=== PATIENT | male | born 1945 | race Caucasian/White ===

== ENCOUNTER 2020-01-05 15:38 | Emergency (ER) | payer MEDICARE, OTHER ==
[~2020-01-05] VITALS: Ht 177.8 cm; Wt 86.0 kg
[~2020-01-05 15:38] MED LIST: ALPR0.5T PO; AMLO5TAB4 PO; DIPH1TAB PO; ESOM40CA PO; FENO145T3 PO; FERR325T14 PO; GLYB2.5T2 PO; IBUP800T19 PO; LOSA100T14 PO; MAG DELAY64 MG PO; MELA3TAB4 PO; METF10007 PO; ONDA8TAB9 PO; POTA10CA PO; PROC10TA57 PO; ZOLP5TAB PO
--- NOTE | 2020-01-05 16:06 | PHYS DOC ---
Past History Past Medical History: Cancer, Diabetes Additional Past Medical Histor: Multiple myeloma, bone marrow transplant Past Surgical History: No Surgical History Alcohol Use: None General Adult EDM: Chief Complaint: OTHER COMPLAINTS HPI: HPI: Patient is a 74-year-old male who presents to the emergency department for evaluation. He states that he apparently had a syncopal episode last night, where he passed out on the floor of his bedroom. He does not remember this, but he awakened to EMS in the room to check him out. He did not go to the hospital, and has felt fine since that time. His called his primary care doctor who referred him to the emergency department. The patient is currently asympt omatic. He denies any headache, chest pain, shortness of breath, abdominal pain, recent black or bloody stools, current dizziness or lightheadedness. He has not had any numbness or weakness. He states that he does sometimes feel dizzy after sitting for long period of time and standing up, but this has been a longstanding issue and is not new. There are no alleviating or exacerbating factors to his condition. Review of Systems: Review of Systems: Constitutional: Denies fever or chills Eyes: Denies change in visual acuity HENT: Denies nasal congestion or sore throat Respiratory: Denies cough or shortness of breath Cardiovascular: Denies chest pain or edema GI: Denies abdominal pain, nausea, vomiting, bloody stools or diarrhea : Denies dysuria Musculoskeletal: Denies back pain or joint pain Integument: Denies rash Neurologic: Denies headache, focal weakness or sensory changes Endocrine: Denies polyuria or polydipsia Lymphatic: Denies swollen glands Psychiatric: Denies depression or anxiety Heart Score: Risk Factors: Risk Factors: DM, Current or recent (<one month) smoker, HTN, HLP, family history of CAD, obesity. Risk Scores: Score 0 - 3: 2.5% MACE over next 6 weeks - Discharge Home Score 4 - 6: 20.3% MACE over next 6 weeks - Admit for Clinical Observation Score 7 - 10: 72.7% MACE over next 6 weeks - Early Invasive Strategies Allergies: Allergies: Allergies Coded Allergies Type Severity Reaction Last Updated Verified No Known Drug Allergies 06/12/16 No Physical Exam: PE: PHYSICAL EXAM: CONSTITUTIONAL: Well developed, well nourished HEAD: normocephalic, atraumatic EENT: PERRL, EOMI. Conjunctivae normal color, sclerae non-icteric; moist mucous membranes. NECK: Supple, non-tender; no meningismus. LUNGS: Lungs CTA, breathing even and unlabored. Normal air movement. HEART: Regular rate and rhythm, no murmur CHEST: No deformity; non-tender ABDOMEN: The abdomen is soft, and non-tender, no masses or bruits. EXTREM: Normal ROM; no deformity, no calf tenderness. Normal pulses palpable in all extremities. There is no pedal edema. SKIN: No rash; no diaphoresis NEURO: Alert; normal speech and cognition; CN's grossly intact; strength grossly intact without focal deficit. BACK: No CVA TTP. Current Patient Data: Labs: Laboratory Tests Test 01/05/20 16:27 01/05/20 16:28 01/05/20 16:56 White Blood Count 4.7 x10^3/uL Red Blood Count 3.05 x10^6/uL Hemoglobin 10.0 g/dL Hematocrit 28.5 % Mean Corpuscular Volume 94 fL Mean Corpuscular Hemoglobin 33 pg Mean Corpuscular Hemoglobin Concent 35 g/dL Red Cell Distribution Width 15.4 % Platelet Count 268 x10^3/uL Neutrophils (%) (Auto) 73 % Lymphocytes (%) (Auto) 23 % Monocytes (%) (Auto) 4 % Eosinophils (%) (Auto) 0 % Basophils (%) (Auto) 0 % Neutrophils # (Auto) 3.4 x10^3uL Lymphocytes # (Auto) 1.1 x10^3/uL Monocytes # (Auto) 0.2 x10^3/uL Eosinophils # (Auto) 0.0 x10^3/uL Basophils # (Auto) 0.0 x10^3/uL Sodium Level 128 mmol/L Potassium Level 3.9 mmol/L Chloride Level 94 mmol/L Carbon Dioxide Level 24 mmol/L Anion Gap 10 Blood Urea Nitrogen 20 mg/dL Creatinine 1.5 mg/dL Estimated GFR (Cockcroft-Gault) 45.9 BUN/Creatinine Ratio 13 Glucose Level 141 mg/dL Calcium Level 8.4 mg/dL Total Bilirubin 0.3 mg/dL Aspartate Amino Transf (AST/SGOT) 23 U/L Alanine Aminotransferase (ALT/SGPT) 21 U/L Alkaline Phosphatase 67 U/L Troponin I Quantitative < 0.017 ng/mL Total Protein 6.0 g/dL Albumin 3.1 g/dL Albumin/Globulin Ratio 1.1 Urine Collection Type Unknown Urine Color Yellow Urine Clarity Clear Urine pH 6.0 Urine Specific Ary >=1.030 Urine Protein 100 mg/dl Urine Glucose (UA) Neg mg/dL Urine Ketones (Stick) Trace mg/dL Urine Blood Trace Urine Nitrite Neg Urine Bilirubin Neg Urine Urobilinogen Dipstick 0.2 mg/dL Urine Leukocyte Esterase Neg Urine RBC 1-2 /HPF Urine WBC 1-4 /HPF Urine Squamous Epithelial Cells Occ /LPF Urine Bacteria 0 /HPF Urine Mucus Mod /LPF Stool Occult Blood Negative Current Medications Medications (Trade) Dose Ordered Sig/Tena Route PRN Reason Start Time Stop Time Status Last Admin Dose Admin Sodium Chloride 500 ml @ 0 mls/hr 1X ONCE IV 01/05/20 17:15 01/05/20 17:32 DC 01/05/20 17:10 Vital Signs: Vital Signs Date Time Temp Pulse Resp B/P (MAP) Pulse Ox O2 Delivery O2 Flow Rate FiO2 01/05/20 15:49 98.1 90 16 127/65 (85) 95 Room Air EKG: EKG: Normal sinus rhythm at a rate of 91 bpm, left axis deviation, normal intervals, nonspecific ST/T changes. [] Radiology/Procedures: Radiology/Procedures: PROCEDURE: CT HEAD WO CONTRAST CT brain without contrast. HISTORY: Syncope CT scan of the brain was done without contrast. Sinuses are clear. A skull fracture is not identified. There is no mass or shift of the midline. There is no intracranial hemorrhage or subdural hematoma. Ventricles are normal in size. An acute CVA is not identified. There is mild decreased density in the periventricular white matter most likely chronic microvascular changes.. IMPRESSION: 1. No intracranial hemorrhage or acute finding noted. [] PROCEDURE: CHEST AP ONLY AP chest. HISTORY: Syncope AP view was taken of the chest. There is a right Port-A-Cath extending to the superior vena cava. Heart is normal in size. There is are mild hazy infiltrates along the left heart border. There is slight blunting of the right costophrenic angle. A small right effusion is possible. There are no confluent infiltrates in the right chest. IMPRESSION: 1. Possible small right pleural effusion. 2. Mild left lung infiltrates. Course & Med Decision Making: Course & Med Decision Making Pertinent Labs and Imaging studies reviewed. (See chart for details) [] 6:10 PM: The patient's condition remains stable at this time. He remains asymptomatic. He still reports chronic low hemoglobin, chronic low sodium. His kidney function is not significantly different than his prior values from several years ago. I discussed test results in detail, the need for close PCP follow-up and return precautions. He does not want to be admitted to the hospital at this time. Yazmin Disclaimer: Yazmin Disclaimer: This electronic medical record was generated, in whole or in part, using a voice recognition dictation system. Departure Departure: Impression: Primary Impression: Syncope Disposition: 01 HOME/RESIDENCE PRIOR TO ADM Condition: STABLE Referrals: LORENZA ARMIJO MD (PCP) Patient Instructions: Hyponatremia, Syncope Justification of Admission: Justification of Admission: Justification of Admission Dx: N/A JAYNE TRIPATHI MD Jan 05, 2020 16:06
--- NOTE | 2020-01-05 16:28 | RAD ---
CT brain without contrast. HISTORY: Syncope CT scan of the brain was done without contrast. Sinuses are clear. A skull fracture is not identified. There is no mass or shift of the midline. There is no intracranial hemorrhage or subdural hematoma. Ventricles are normal in size. An acute CVA is not identified. There is mild decreased density in the periventricular white matter most likely chronic microvascular changes.. IMPRESSION: 1. No intracranial hemorrhage or acute finding noted. PQRS Compliance Statement: One or more of the following individualized dose reduction techniques were utilized for this examination: 1. Automated exposure control 2. Adjustment of the mA and/or kV according to patient size 3. Use of iterative reconstruction technique Electronically signed by: Gigi Stokes MD (01/05/2020 4:25 PM) [facility]
--- NOTE | 2020-01-05 16:32 | RAD ---
AP chest. HISTORY: Syncope AP view was taken of the chest. There is a right Port-A-Cath extending to the superior vena cava. Heart is normal in size. There is are mild hazy infiltrates along the left heart border. There is slight blunting of the right costophrenic angle. A small right effusion is possible. There are no confluent infiltrates in the right chest. IMPRESSION: 1. Possible small right pleural effusion. 2. Mild left lung infiltrates. Electronically signed by: Gigi Stokes MD (01/05/2020 4:29 PM) [facility]
[2020-01-05 16:44] LABS: BASO % 0 % (0-3); EOS % 0 % (0-3); HEMATOCRIT 28.5 % (39.0-53.0); LYMPH # 1.1 x10^3/uL (1.0-4.8); LYMPH % 23 % (24-48); MEAN CORPUSCULAR HEMOGLOBIN 33 pg (25-35); MEAN CORPUSCULAR HGB CONC 35 g/dL (31-37); MEAN CORPUSCULAR VOLUME 94 fL (79-100); MONO # 0.2 x10^3/uL (0.0-1.1); MONO % 4 % (0-9); NEUT # 3.4 x10^3uL (1.8-7.7); NEUT % 73 % (31-73); PLATELET COUNT 268 x10^3/uL (140-400); RED BLOOD COUNT 3.05 x10^6/uL (4.30-5.70); RED CELL DISTRIBUTION WIDTH 15.4 % (11.5-14.5); WHITE BLOOD COUNT 4.7 x10^3/uL (4.0-11.0)
[2020-01-05 16:51] LABS: CALCIUM 8.4 mg/dL (8.5-10.1); CREATININE 1.5 mg/dL (0.7-1.3); GFR 45.9; POTASSIUM 3.9 mmol/L (3.5-5.1)
[2020-01-05 16:57] LABS: ALBUMIN 3.1 g/dL (3.4-5.0); ALBUMIN/GLOBULIN RATIO 1.1 (1.0-1.7); TOTAL BILIRUBIN 0.3 mg/dL (0.2-1.0)
[2020-01-05] MEDS ORDERED: IV NORMAL SALINE 500ML 500 ML IV ONE (17:15)
--- NOTE | 2020-01-05 17:32 | EKG ---
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
[2020-01-05 17:38] LABS: BACTERIA,URINE 0 /HPF (0-FEW); BILIRUBIN,URINE NEG (NEG); CLARITY,URINE CLEAR; COLOR,URINE YELLOW; GLUCOSE,URINE NEG (NEG); NITRITE,URINE NEG (NEG); SQUAMOUS EPITHELIAL CELL,UR OCC /LPF; UROBILINOGEN,URINE 0.2 mg/dL (0.2 mg/dL)
[2020-01-05 17:47] LABS: FECAL OB PT NEGATIVE (NEG)
[2020-01-05 18:18] VITALS: BP 110/56
== END 2020-01-05 18:18 | disposition home or self-care (01) ==
LOC: ER 15:38
DX: R55 Syncope and collapse (principal); E11.9 Type 2 diabetes mellitus without complications; Z85.79 Personal history of other malignant neoplasms of lymphoid, hematopoietic and related tissues
CPT/HCPCS: 36415; 70450; 71045; 80053; 81001; 82274; 84484; 85025; 93005; 96360; 96361; 99285; J7040

== ENCOUNTER 2020-01-07 17:50 | Inpatient (IN) | payer MEDICARE, OTHER ==
[~2020-01-07] VITALS: Ht 177.8 cm; Wt 80.2 kg
[2020-01-07 19:00] VITALS: BP 133/67
--- NOTE | 2020-01-07 19:23 | NUR ---
NSG NOTE; ADMISSION DIRECT ADMIT TO ROOM 125 AT 1755 VIA W/C ACCOMP BY WHO WAITED IN THE LOBBY PT HAD SYNCOPE EPISODE 01/04/20 AT HOME AND C/O LETHARGY, CONFUSION, LOW GRADE FEVERS, WEAKNESS AND PROD COUGH SINCE THEN. ED VISIT 01/06/20 SHOWED INFILTRATES BUT PT REFUSED ADMIT. WENT TO DR ARMIJO'S OFFICE TODAY AND AGREED TO BE ADMITTED
[2020-01-07 19:44] LABS: BASO % 0 % (0-3); EOS % 0 % (0-3); HEMOGLOBIN 9.8 g/dL (13.0-17.5); LYMPH # 0.6 x10^3/uL (1.0-4.8); LYMPH % 18 % (24-48); MEAN CORPUSCULAR HEMOGLOBIN 33 pg (25-35); MEAN CORPUSCULAR HGB CONC 35 g/dL (31-37); MEAN CORPUSCULAR VOLUME 93 fL (79-100); MONO # 0.2 x10^3/uL (0.0-1.1); MONO % 6 % (0-9); NEUT # 2.5 x10^3uL (1.8-7.7); NEUT % 76 % (31-73); PLATELET COUNT 302 x10^3/uL (140-400); RED BLOOD COUNT 3.02 x10^6/uL (4.30-5.70); RED CELL DISTRIBUTION WIDTH 15.2 % (11.5-14.5); WHITE BLOOD COUNT 3.3 x10^3/uL (4.0-11.0)
[2020-01-07] MEDS ORDERED: ZOLPIDEM 5 MG TABLET. PO PRN (19:45)
[2020-01-07 19:52] LABS: ALBUMIN 2.8 g/dL (3.4-5.0); ALBUMIN/GLOBULIN RATIO 0.7 (1.0-1.7); CALCIUM 8.1 mg/dL (8.5-10.1); CREATININE 1.5 mg/dL (0.7-1.3); GFR 45.9; POTASSIUM 3.7 mmol/L (3.5-5.1); TOTAL BILIRUBIN 0.3 mg/dL (0.2-1.0); TOTAL PROTEIN 6.8 g/dL (6.4-8.2)
[2020-01-07] MEDS ORDERED: PROCHLORPERAZINE 5 MG TABLET. PO PRN (20:15)
[2020-01-07] MEDS: ALPRAZolam 0.5 MG TABLET PO PRN (21:37)
--- NOTE | 2020-01-07 21:42 | RAD ---
CT CHEST WO CONTRAST Indication: Pneumonia, shortness of air, weakness, cough Technique: Noncontrast CT imaging was performed of the chest, multiplanar reconstruction images submitted. One or more of the following individualized dose reduction techniques were utilized for this examination: 1. Automated exposure control 2. Adjustment of the mA and/or kV according to patient size 3. Use of iterative reconstruction technique. Comparison: None Findings: There is broad area of prominent groundglass density of the left lower and left upper lobes, smaller areas on the right. Involvement is more peripheral of the right upper lobe and right lower lobe. There is no pleural or pericardial fluid or pneumothorax. There is severe coronary calcification. There is right internal jugular port catheter. There are some lytic foci of the sternum, largest on the right about 2.7 cm transverse. There are multiple scattered lytic foci of the spine, most notable of T9 at which there is degree of pathologic compression deformity. There is also fairly large focus of C7. There is mild distention of the distal esophagus. No significantly enlarged nodes are identified of the chest. There is a 2.4 cm cyst of the right kidney. There is a left adrenal nodule about 2.9 cm. IMPRESSION: 1. There are multiple osseous lytic foci, evidence of multiple myeloma or metastatic disease. There is pathologic compression deformity of T9. 2. There are broad areas of glass density bilaterally, left greater than right. Findings are nonspecific, could be due to edema although can be seen with atypical viral infectious etiologies (including COVID). 3. There is coronary calcification. 4. There is left adrenal nodule. Critical results were discussed with patient's nurse Argenis at 01/07/2020 9:34 PM. Electronically signed by: Sonny Wan MD (01/07/2020 9:40 PM) [facility]
[2020-01-07] MEDS: AZITHROMYCIN 500 MG in IV NORMAL SALINE 250ML 250 ML IV SCH (22:23)
[2020-01-07] MEDS: CALCIUM CARBONATE 500 MG TAB.CHEW PO PRN (23:29)
[2020-01-07 23:48] VITALS: BP 139/80
[2020-01-08 06:58] VITALS: BP 121/66
[2020-01-08 07:23] LABS: BASO % 0 % (0-3); EOS % 0 % (0-3); HEMATOCRIT 27.7 % (39.0-53.0); HEMOGLOBIN 9.8 g/dL (13.0-17.5); LYMPH # 0.8 x10^3/uL (1.0-4.8); LYMPH % 31 % (24-48); MEAN CORPUSCULAR HEMOGLOBIN 32 pg (25-35); MEAN CORPUSCULAR HGB CONC 35 g/dL (31-37); MEAN CORPUSCULAR VOLUME 92 fL (79-100); MONO # 0.2 x10^3/uL (0.0-1.1); MONO % 6 % (0-9); NEUT # 1.7 x10^3uL (1.8-7.7); NEUT % 63 % (31-73); PLATELET COUNT 308 x10^3/uL (140-400); RED BLOOD COUNT 3.03 x10^6/uL (4.30-5.70); RED CELL DISTRIBUTION WIDTH 15.1 % (11.5-14.5); WHITE BLOOD COUNT 2.7 x10^3/uL (4.0-11.0)
[2020-01-08 07:33] LABS: CALCIUM 8.1 mg/dL (8.5-10.1); CREATININE 1.2 mg/dL (0.7-1.3); GFR 59.3; POTASSIUM 3.5 mmol/L (3.5-5.1)
[2020-01-08] MEDS: PANTOPRAZOLE 40 MG TABLET. PO SCH (07:52)
[2020-01-08] MEDS: metFORMIN 500 MG TABLET PO SCH ×2 (07:52→16:50)
[2020-01-08] MEDS: ALPRAZolam 0.5 MG TABLET PO PRN ×2 (07:52→16:51)
[2020-01-08] MEDS: FERROUS SULFATE 325 MG TABLET. PO SCH (07:52)
[2020-01-08] MEDS: FENOFIBRATE NANOCRYSTALLIZED 145 MG TABLET PO SCH (07:53)
[2020-01-08] MEDS: POTASSIUM CHLORIDE 10 MEQ TABLET.ER. PO SCH (07:53)
[2020-01-08] MEDS: glyBURIDE 1.25 MG TABLET PO SCH (07:55)
[2020-01-08] MEDS: LACTOBACILLUS RHAMNOSUS GG 1 CAPSULE. PO SCH ×2 (09:00→20:42)
[2020-01-08] MEDS ORDERED: LOSARTAN 50 MG TABLET. PO SCH (09:00)
[2020-01-08] MEDS ORDERED: amLODIPine BESYLATE 5 MG TABLET PO SCH (09:00)
[2020-01-08] MEDS ORDERED: MAGNESIUM CHLORIDE ER 64 MG TABLET.ER PO SCH (09:00)
[2020-01-08] MEDS ORDERED: FUROSEMIDE 20 MG/2 ML VIAL IVP ONE (10:15)
[2020-01-08] MEDS ORDERED: ONDANSETRON PF 4 MG/2 ML VIAL. IVP PRN (10:15)
[2020-01-08] MEDS ORDERED: ONDANSETRON 4MG ODT 4TABLET STARTPACK. PO ONE (10:15)
--- NOTE | 2020-01-08 11:33 | NUR ---
Patient is Dishcarged home with self care. Patient is given all discharge instructions and followup. Patient takes all belongings with self at time of discharge.
[2020-01-08 11:52] VITALS: BP 133/65
[2020-01-08] MEDS ORDERED: MONT10TA80 PO (14:15)
[2020-01-08] MEDS ORDERED: OXYC5TAB88 PO (14:15)
[2020-01-08] MEDS ORDERED: ASPI325T8 PO (14:15)
[2020-01-08] MEDS ORDERED: TRAM50TA PO (14:15)
[2020-01-08] MEDS ORDERED: VITA80003 PO (14:15)
[2020-01-08 15:00] VITALS: BP 142/81
--- NOTE | 2020-01-08 18:01 | PN ---
DATE: SUBJECTIVE: A 74-year-old gentleman, history of multiple myeloma, came in, not feeling well, has been running low-grade temperature. His chest x-ray initially in the Emergency Room showed an infiltrative process, possible pneumonia, high risk, being immunocompromised from he receives immunotherapy for his multiple myeloma. His white count is slightly decreased at 2.7, neutropenic and no left shift was noted. The patient was somewhat anxious this morning and he was given some Ativan for that. OBJECTIVE: VITAL SIGNS: Blood pressure 130/60, pulse 86, afebrile, respiratory rate is noted 20 with oxygen at 2 liters at 96%. LUNGS: Otherwise, his lungs do show some crackles in the bases. CARDIOVASCULAR: Regular sinus rhythm. ABDOMEN: Soft, nontender, no masses noted. EXTREMITIES: With just trace edema noted. Pulses noted distally. NEUROLOGICAL: Alert and oriented, but somewhat anxious as indicated. The patient to me was alert and oriented. He answered questions appropriately and was able to discuss his overall situation that he was feeling somewhat anxious and just needed some rest. The patient obviously under a lot of stress with his multiple myeloma as well as his diabetes, not being well controlled. He is on a sliding scale for this as well. His sodium was also slightly low at 128, came up to 131. BUN and creatinine presently 23 and 1.2, was 25 and 1.5, blood sugar presently 225, calcium slightly low at 8.1, pseudohypocalcemia with an albumin of 2.8. The patient otherwise continued to be monitored carefully. CT scan of the chest was performed, showed multiple osseous lytic foci, evidence of multiple myeloma or metastatic disease, probably multiple myeloma and possible pathological compression deformity of T9, areas of glass density in the left greater than right could be due to edema. BNP was ordered and that is pending presently. Procalcitonin was less than 0.10. Albumin is noted 2.8. The patient will continue with present therapy, given dose of Lasix 20 mg IV one time to diurese and see if that will help him. COVID-19 test is pending. 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 In any case, the patient is in a COVID-19 room, all appropriate precautions there, given lorazepam for anxiety. Did discuss with his situation and the patient just wants to rest right now and await some of these other lab tests to be returned to the chart. LORENZA ARMIJO MD DR: CHANO/gricel JOB#: [id number] / [id number]
[2020-01-08 19:45] VITALS: BP 108/58
[2020-01-08] MEDS: CALCIUM CARBONATE 500 MG TAB.CHEW PO PRN (20:42)
[2020-01-08] MEDS: AZITHROMYCIN 500 MG in IV NORMAL SALINE 250ML 250 ML IV SCH (21:48)
--- NOTE | 2020-01-08 22:24 | NUR ---
Pt given Ativan and Ambien this evening with night meds. He expresses he struggles with anxiety and hopes to sleep well tonight. Pt shows increased confusion and repeatedly getting up to "organize this room." Able to redirect to bed, replaced CPAP mask and reposition for efficient infusion of antibiotics. Will continue to monitor.
[2020-01-08 23:16] VITALS: BP 153/71
[2020-01-09] MEDS: ALPRAZolam 0.5 MG TABLET PO PRN ×2 (00:39→09:30)
--- NOTE | 2020-01-09 02:40 | NUR ---
Pt continues to "try to get untangled." He pulled off his monitor and storage bin tender two more times. He has been found wandering around the room adjusting furniture and pulling the IV pole. His CPAP was found on the floor a few times; cleaned and reapplied. Twice the patient has been wandering down the isolation zapata to "stretch his legs." Pt is pleasantly confused and forgetful of necessary safety precautions. IV dressing remains intact but IV cannula removed. Pt recalls this nurse reminding him of his infusion being "almost done" as he explained that is why he pulled his IV out. Pt found gathering supplies outside of his room and placing them in the trash. Encouraged pt to remain in his room to avoid jose others' infectious diseases. Pt abruptly went to his room and shut the door on this nurse. Encouraged pt to get back into bed and applied nasal cannula on 2L since pt was not sleeping and was short of air. Pt requested a diet coke and remains in bed currently. Will continue to monitor.
--- NOTE | 2020-01-09 05:10 | NUR ---
Found pt leaning forward, resting his head in his hands against the wall by the door. Pt states he just feels uncomfortable and stiff from lying in bed. Pt requests oxycotin for pain but denies pain level when asked on a scale. Pt also requests chocolate milk, which we do not have but accepted chocolate ice cream. Encouraged pt to get into bed and replaced nasal cannula as pt is breathing heavy. Provided diet cola and ice cream. Will continue to monitor.
--- NOTE | 2020-01-09 05:17 | EKG ---
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
--- NOTE | 2020-01-09 06:35 | NUR ---
Attempted to start an IV and administer Ativan about 0517. No IV access was successful. Pt now asleep. Will try again later.
[2020-01-09] MEDS ORDERED: MONTELUKAST 10 MG TABLET. PO PRN (08:15)
[2020-01-09] MEDS ORDERED: NON FORMULARY ITEM (Vitamin A 8,000 UNIT) PO SCH (09:00)
[2020-01-09] MEDS: oxyCODONE IR 5 MG TABLET PO PRN (09:30)
[2020-01-09] MEDS: LACTOBACILLUS RHAMNOSUS GG 1 CAPSULE. PO SCH ×2 (09:30→20:31)
[2020-01-09] MEDS: FERROUS SULFATE 325 MG TABLET. PO SCH (09:30)
[2020-01-09] MEDS: POTASSIUM CHLORIDE 10 MEQ TABLET.ER. PO SCH (09:30)
[2020-01-09] MEDS: PANTOPRAZOLE 40 MG TABLET. PO SCH (09:30)
[2020-01-09] MEDS: metFORMIN 500 MG TABLET PO SCH ×2 (09:30→17:00)
[2020-01-09] MEDS: FENOFIBRATE NANOCRYSTALLIZED 145 MG TABLET PO SCH (09:30)
[2020-01-09] MEDS: ASPIRIN 325 MG TABLET PO SCH (09:30)
[2020-01-09] MEDS: glyBURIDE 1.25 MG TABLET PO SCH (09:32)
[2020-01-09 09:34] VITALS: BP 129/75
[2020-01-09 12:32] VITALS: BP 108/67
[2020-01-09] MEDS: FUROSEMIDE 40 MG/4 ML VIAL IVP SCH (13:25)
[2020-01-09 14:13] LABS: BASO % 0 % (0-3); EOS % 0 % (0-3); HEMATOCRIT 26.9 % (39.0-53.0); HEMOGLOBIN 9.6 g/dL (13.0-17.5); LYMPH # 0.7 x10^3/uL (1.0-4.8); LYMPH % 17 % (24-48); MEAN CORPUSCULAR HEMOGLOBIN 33 pg (25-35); MEAN CORPUSCULAR HGB CONC 36 g/dL (31-37); MEAN CORPUSCULAR VOLUME 93 fL (79-100); MONO # 0.1 x10^3/uL (0.0-1.1); MONO % 3 % (0-9); NEUT % 79 % (31-73); PLATELET COUNT 356 x10^3/uL (140-400); RED BLOOD COUNT 2.91 x10^6/uL (4.30-5.70); WHITE BLOOD COUNT 3.8 x10^3/uL (4.0-11.0)
[2020-01-09 14:22] LABS: ALBUMIN 2.7 g/dL (3.4-5.0); ALBUMIN/GLOBULIN RATIO 0.7 (1.0-1.7); CALCIUM 7.9 mg/dL (8.5-10.1); CREATININE 1.4 mg/dL (0.7-1.3); GFR 49.7; POTASSIUM 3.5 mmol/L (3.5-5.1); TOTAL BILIRUBIN 0.2 mg/dL (0.2-1.0); TOTAL PROTEIN 6.6 g/dL (6.4-8.2)
[2020-01-09 15:00] VITALS: BP 98/71
[2020-01-09 19:30] VITALS: BP 111/64
--- NOTE | 2020-01-09 19:59 | PN ---
DATE: SUBJECTIVE: A 74-year-old male in with multiple medical issues. He says he is feeling a little better, although the nurses note he does get sundowners at night. Blood sugars are still up. We will add Lantus along to his sliding scale. The patient otherwise is resting comfortably presently and was able to discuss things and asked some intelligent questions consistent. His oxygen saturation on 2 liters is 90%. OBJECTIVE: VITAL SIGNS: Blood pressure 130/70, respiratory rate 20, pulse 83 and afebrile. GENERAL: The patient is alert presently. LUNGS: Show some crackles in the bases. We will go ahead and give him some IV Lasix and continue to monitor him accordingly on that. CARDIOVASCULAR: Regular sinus rhythm. ABDOMEN: Soft. EXTREMITIES: Without clubbing, cyanosis, nor edema. LABORATORY TEST: BNP was slightly elevated at 264. Iron levels low at 24. IMPRESSION AND PLAN: Multiple myeloma, pulmonary congestion, immunosuppression, COVID-19 report still pending, hyponatremia, osteolytic lesions of the bone, chronic kidney disease, type 2 diabetes, anemia secondary to iron deficiency and multiple myeloma, neutropenia. The patient still under precautions with his immunosuppression until we get back the COVID-19 test. LORENZA ARMIJO MD DR: CHANO/gricel JOB#: [id number] / [id number]
[2020-01-09] MEDS: MELATONIN 3 MG TABLET PO SCH (20:32)
[2020-01-09] MEDS ORDERED: INSULIN GLARGINE SYRINGE. SQ SCH (21:00)
[2020-01-09] MEDS: AZITHROMYCIN 500 MG in IV NORMAL SALINE 250ML 250 ML IV SCH (21:29)
[2020-01-09 22:53] VITALS: BP 93/47
[2020-01-10 06:37] VITALS: BP 113/64
[2020-01-10 06:38] LABS: BASO % 0 % (0-3); EOS % 0 % (0-3); HEMATOCRIT 26.4 % (39.0-53.0); HEMOGLOBIN 9.3 g/dL (13.0-17.5); LYMPH # 0.7 x10^3/uL (1.0-4.8); LYMPH % 14 % (24-48); MEAN CORPUSCULAR HEMOGLOBIN 32 pg (25-35); MEAN CORPUSCULAR HGB CONC 35 g/dL (31-37); MEAN CORPUSCULAR VOLUME 92 fL (79-100); MONO # 0.1 x10^3/uL (0.0-1.1); MONO % 2 % (0-9); NEUT % 83 % (31-73); PLATELET COUNT 375 x10^3/uL (140-400); RED BLOOD COUNT 2.87 x10^6/uL (4.30-5.70); RED CELL DISTRIBUTION WIDTH 14.9 % (11.5-14.5); WHITE BLOOD COUNT 4.8 x10^3/uL (4.0-11.0)
[2020-01-10] MEDS: traMADol 50 MG TABLET PO PRN (06:42)
[2020-01-10 06:51] LABS: CALCIUM 7.7 mg/dL (8.5-10.1); CREATININE 1.3 mg/dL (0.7-1.3); GFR 54.1; POTASSIUM 3.1 mmol/L (3.5-5.1)
[2020-01-10] MEDS: ALPRAZolam 0.5 MG TABLET PO PRN (08:29)
[2020-01-10] MEDS: metFORMIN 500 MG TABLET PO SCH ×3 (08:29→17:18)
[2020-01-10] MEDS: LACTOBACILLUS RHAMNOSUS GG 1 CAPSULE. PO SCH ×2 (08:30→20:42)
[2020-01-10] MEDS: FENOFIBRATE NANOCRYSTALLIZED 145 MG TABLET PO SCH (08:30)
[2020-01-10] MEDS: ASPIRIN 325 MG TABLET PO SCH (08:30)
[2020-01-10] MEDS: PANTOPRAZOLE 40 MG TABLET. PO SCH (08:30)
[2020-01-10] MEDS: POTASSIUM CHLORIDE 10 MEQ TABLET.ER. PO SCH (08:30)
[2020-01-10] MEDS: FUROSEMIDE 40 MG/4 ML VIAL IVP SCH (08:32)
[2020-01-10] MEDS: FERROUS SULFATE 325 MG TABLET. PO SCH (08:33)
[2020-01-10 08:35] VITALS: BP 121/58
[2020-01-10] MEDS: glyBURIDE 1.25 MG TABLET PO SCH (08:52)
[2020-01-10] MEDS ORDERED: POTASSIUM CHLORIDE 20 MEQ TABLET.ER. PO ONE (08:55)
[2020-01-10] MEDS ORDERED: ELECTROLYTE (NON-ICU) PROTOCOL MC PRN (09:45)
--- NOTE | 2020-01-10 10:26 | NUR ---
IP: Patient is PUI for COVID-19, requires contact and airborne precautions.
[2020-01-10] MEDS: INSULIN GLARGINE SYRINGE. SQ SCH ×2 (11:52→20:41)
[2020-01-10 11:57] VITALS: BP 100/61
[2020-01-10 12:03] LABS: FECAL OB PT NEGATIVE (NEG)
[2020-01-10 15:16] VITALS: BP 123/60
[2020-01-10 19:30] VITALS: BP 112/47
[2020-01-10] MEDS: MELATONIN 3 MG TABLET PO SCH (20:42)
[2020-01-10] MEDS: AZITHROMYCIN 500 MG in IV NORMAL SALINE 250ML 250 ML IV SCH (21:00)
[2020-01-10 23:00] VITALS: BP 100/52
--- NOTE | 2020-01-11 03:40 | PN ---
DATE: 01/10/2020 SUBJECTIVE: The patient is resting comfortably. He has good diuresis with the Lasix, seems to be doing better. His white count is up to 4.8, hemoglobin 9.3 and hematocrit 26. The patient's chemistry shows sodium of 131, potassium 3.1. He is on electrolyte replacement. Blood sugars have come down nicely with the increase in the Lantus and we will continue to monitor his blood sugars, they are Hemoccult negative. COVID-19 is still pending. PHYSICAL EXAMINATION: VITAL SIGNS: Otherwise, blood pressure 120/60, respiratory rate 20, pulse 90, afebrile, 2 liters 95%. GENERAL: The patient is alert and oriented. LUNGS: Diminished, but much clear. No rhonchi noted in the bases. CARDIOVASCULAR: Regular sinus rhythm. EXTREMITIES: No clubbing, cyanosis, or edema. NEUROLOGIC: The patient at present anyway is alert and oriented. Speech is fluent, spontaneous, and appropriate. PLAN: The patient continues to be monitored carefully and will be monitored again in the morning for his electrolytes. LORENZA ARMIJO MD DR: CHANO/griecl JOB#: [id number] / [id number]
[2020-01-11] MEDS: INSULIN GLARGINE SYRINGE. SQ SCH ×3 (09:00→21:10)
[2020-01-11 09:07] VITALS: BP 101/50
[2020-01-11 09:28] LABS: CALCIUM 7.5 mg/dL (8.5-10.1); CREATININE 1.2 mg/dL (0.7-1.3); GFR 59.3; POTASSIUM 3.2 mmol/L (3.5-5.1)
[2020-01-11 09:29] LABS: BASO % 0 % (0-3); EOS % 0 % (0-3); HEMATOCRIT 26.7 % (39.0-53.0); HEMOGLOBIN 9.2 g/dL (13.0-17.5); LYMPH # 0.6 x10^3/uL (1.0-4.8); LYMPH % 13 % (24-48); MEAN CORPUSCULAR HEMOGLOBIN 32 pg (25-35); MEAN CORPUSCULAR HGB CONC 35 g/dL (31-37); MEAN CORPUSCULAR VOLUME 92 fL (79-100); MONO # 0.1 x10^3/uL (0.0-1.1); MONO % 2 % (0-9); NEUT # 3.9 x10^3uL (1.8-7.7); NEUT % 84 % (31-73); PLATELET COUNT 362 x10^3/uL (140-400); RED BLOOD COUNT 2.91 x10^6/uL (4.30-5.70); RED CELL DISTRIBUTION WIDTH 14.6 % (11.5-14.5); WHITE BLOOD COUNT 4.6 x10^3/uL (4.0-11.0)
[2020-01-11] MEDS: metFORMIN 500 MG TABLET PO SCH ×2 (09:29→17:34)
[2020-01-11] MEDS: LACTOBACILLUS RHAMNOSUS GG 1 CAPSULE. PO SCH ×2 (09:29→21:26)
[2020-01-11] MEDS: FERROUS SULFATE 325 MG TABLET. PO SCH (09:29)
[2020-01-11] MEDS: PANTOPRAZOLE 40 MG TABLET. PO SCH (09:29)
[2020-01-11] MEDS: FENOFIBRATE NANOCRYSTALLIZED 145 MG TABLET PO SCH (09:29)
[2020-01-11] MEDS: ALPRAZolam 0.5 MG TABLET PO PRN ×2 (09:30→18:13)
[2020-01-11] MEDS: glyBURIDE 1.25 MG TABLET PO SCH (09:30)
[2020-01-11] MEDS: ASPIRIN 325 MG TABLET PO SCH (09:30)
[2020-01-11] MEDS: POTASSIUM CHLORIDE 10 MEQ TABLET.ER. PO SCH (09:30)
[2020-01-11] MEDS: FUROSEMIDE 40 MG/4 ML VIAL IVP SCH (09:31)
[2020-01-11] MEDS ORDERED: ELECTROLYTE (NON-ICU) PROTOCOL MC PRN ×2 (09:45)
[2020-01-11] MEDS: ALBUTEROL SULFATE 8GM INHALER. INH SCH ×3 (09:55→21:00)
--- NOTE | 2020-01-11 11:46 | PN ---
DATE: SUBJECTIVE: A 74-year-old male with acute exacerbation of COPD as well as respiratory distress. The patient is feeling better. He does look better. He sounds better overall. The patient has diuresed nicely and his blood sugars seem to be under better control overall with the use of the Lantus. The patient's sodium has dropped down to 129, potassium 3.2. He is on electrolyte replacement, fluid restriction. Otherwise, he does not have any basic complaints except some soreness in his neck. OBJECTIVE: GENERAL: The patient otherwise is alert and oriented. Speech is fluent and spontaneous. He seems to be very appropriate emotionally. LUNGS: Clear. There is still little decreased breath sounds in the bases, but markedly improved from where he began. CARDIOVASCULAR: Regular sinus rhythm. EXTREMITIES: No clubbing, cyanosis, nor edema. LABORATORY DATA: From this morning shows sodium 129, potassium 3.2, BUN and creatinine 23 and 1.2, blood sugar 198. The patient continues to be monitored. We are still waiting for COVID-19 test to be returned and we will make further adjustment accordingly of course to that test. IMPRESSION: Multiple myeloma, pulmonary congestion, immunosuppression. COVID-19 report still pending. Hyponatremia. 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 We will continue mild diuresis and make further adjustment on his medications as new reports are brought in. LORENZA ARMIJO MD DR: CHANO/gricel JOB#: [id number] / [id number]
[2020-01-11 14:54] VITALS: BP 116/56
[2020-01-11] MEDS: BUDESONIDE 0.5 MG/2 ML NEBU NEB SCH ×2 (17:34→20:00)
[2020-01-11] MEDS: HYDROXYCHLOROQUINE 200 MG TABLET PO SCH (18:01)
[2020-01-11] MEDS: DEXAMETHASONE 0.5 MG TABLET PO SCH (18:02)
[2020-01-11] MEDS: traMADol 50 MG TABLET PO PRN (18:14)
[2020-01-11] MEDS ORDERED: ACETAMINOPHEN 325 MG TABLET PO PRN (19:45)
[2020-01-11 19:50] VITALS: BP 113/61
[2020-01-11] MEDS: MELATONIN 3 MG TABLET PO SCH (21:26)
[2020-01-11] MEDS: AZITHROMYCIN 500 MG in IV NORMAL SALINE 250ML 250 ML IV SCH (22:23)
[2020-01-11 22:57] VITALS: BP 96/54
[2020-01-12 06:17] LABS: CALCIUM 7.4 mg/dL (8.5-10.1); CREATININE 1.1 mg/dL (0.7-1.3); GFR 65.6; POTASSIUM 3.5 mmol/L (3.5-5.1)
[2020-01-12 06:30] VITALS: BP 94/58
[2020-01-12] MEDS: PANTOPRAZOLE 40 MG TABLET. PO SCH (07:30)
[2020-01-12] MEDS: BUDESONIDE 0.5 MG/2 ML NEBU NEB SCH ×2 (08:00→20:32)
[2020-01-12] MEDS: glyBURIDE 1.25 MG TABLET PO SCH (08:00)
[2020-01-12] MEDS: metFORMIN 500 MG TABLET PO SCH ×2 (08:00→18:05)
[2020-01-12] MEDS: ALBUTEROL SULFATE 8GM INHALER. INH SCH ×3 (08:39→20:28)
[2020-01-12] MEDS: FUROSEMIDE 40 MG/4 ML VIAL IVP SCH (08:39)
[2020-01-12] MEDS: LACTOBACILLUS RHAMNOSUS GG 1 CAPSULE. PO SCH ×2 (09:00→20:48)
[2020-01-12] MEDS: ASPIRIN 325 MG TABLET PO SCH (09:00)
[2020-01-12] MEDS: POTASSIUM CHLORIDE 10 MEQ TABLET.ER. PO SCH (09:00)
[2020-01-12] MEDS: FERROUS SULFATE 325 MG TABLET. PO SCH (09:00)
[2020-01-12] MEDS: HYDROXYCHLOROQUINE 200 MG TABLET PO SCH (09:00)
[2020-01-12] MEDS: FENOFIBRATE NANOCRYSTALLIZED 145 MG TABLET PO SCH (09:00)
[2020-01-12] MEDS: DEXAMETHASONE 0.5 MG TABLET PO SCH ×2 (09:00→20:48)
[2020-01-12] MEDS: INSULIN GLARGINE SYRINGE. SQ SCH ×2 (09:00→20:50)
[2020-01-12] MEDS: oxyCODONE IR 5 MG TABLET PO PRN (09:09)
[2020-01-12 12:38] VITALS: BP 93/70
--- NOTE | 2020-01-12 17:15 | EKG ---
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
[2020-01-12 17:32] VITALS: BP 94/56
--- NOTE | 2020-01-12 18:24 | PN ---
DATE: SUBJECTIVE: A 74-year-old male in with SARS COVID-19 pneumonia. The patient's repeat test last night demonstrated he still has the virus, so he is still infective. The patient, however, is doing much better clinically. He seems to be stronger in voice. OBJECTIVE: VITAL SIGNS: Blood pressure 94/50, respiratory rate 18, pulse 70, afebrile. LUNGS: Diminished, but basically clear. NEUROLOGIC: His speech is fluent, spontaneous, and appropriate. He continues to make good progress with his situation. We have started him on Plaquenil and adjusted the dose at 200 mg b.i.d. Otherwise, he continues to make good progress overall in that regard. His labs looked improved. The white count is still about 4.6, hemoglobin 9.2 and hematocrit 26. Good differential there. Sodium and potassium 132 and 3.5; 27 and 1.1, fluid restriction. Blood sugar 190-200, being monitored carefully there. Calcium on the low side, but this may be related to a pseudohypocalcemia since albumin is low at 2.7. 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 PLAN: The patient continued to be monitored carefully. Discussed the situation with his . They do not want him home presently. She cannot take care of him, so we will try to find a facility that will accept this COVID patient. LORENZA ARMIJO MD DR: CHANO/gricel JOB#: [id number] / [id number]
[2020-01-12 19:41] VITALS: BP 109/60
[2020-01-12] MEDS: ALPRAZolam 0.5 MG TABLET PO PRN (20:48)
[2020-01-12] MEDS: HYDROXYCHLOROQUINE (PROGRAM) 200 MG TABLET PO SCH (20:48)
[2020-01-12] MEDS: MELATONIN 3 MG TABLET PO SCH (20:48)
[2020-01-12] MEDS ORDERED: HYDROXYCHLOROQUINE 200 MG TABLET PO SCH (21:00)
[2020-01-12] MEDS: AZITHROMYCIN 500 MG in IV NORMAL SALINE 250ML 250 ML IV SCH (21:13)
[2020-01-12] MEDS: traMADol 50 MG TABLET PO PRN (21:23)
[2020-01-12 22:21] VITALS: BP 92/58
[2020-01-13 05:58] VITALS: BP 118/98
[2020-01-13] MEDS: BUDESONIDE 0.5 MG/2 ML NEBU NEB SCH (08:00)
[2020-01-13] MEDS: glyBURIDE 1.25 MG TABLET PO SCH (08:00)
[2020-01-13] MEDS: INSULIN GLARGINE SYRINGE. SQ SCH (08:17)
[2020-01-13] MEDS: HYDROXYCHLOROQUINE (PROGRAM) 200 MG TABLET PO SCH (08:18)
[2020-01-13] MEDS: FENOFIBRATE NANOCRYSTALLIZED 145 MG TABLET PO SCH (08:18)
[2020-01-13] MEDS: ASPIRIN 325 MG TABLET PO SCH (08:18)
[2020-01-13] MEDS: FERROUS SULFATE 325 MG TABLET. PO SCH (08:18)
[2020-01-13] MEDS: LACTOBACILLUS RHAMNOSUS GG 1 CAPSULE. PO SCH (08:18)
[2020-01-13] MEDS: metFORMIN 500 MG TABLET PO SCH (08:19)
[2020-01-13] MEDS: PANTOPRAZOLE 40 MG TABLET. PO SCH (08:19)
[2020-01-13] MEDS: POTASSIUM CHLORIDE 10 MEQ TABLET.ER. PO SCH (08:19)
[2020-01-13] MEDS: DEXAMETHASONE 0.5 MG TABLET PO SCH (08:20)
[2020-01-13] MEDS: traMADol 50 MG TABLET PO PRN (08:34)
[2020-01-13] MEDS: ALBUTEROL SULFATE 8GM INHALER. INH SCH (09:00)
[2020-01-13 09:24] LABS: CALCIUM 8.1 mg/dL (8.5-10.1); CREATININE 1.3 mg/dL (0.7-1.3); GFR 54.1; POTASSIUM 3.6 mmol/L (3.5-5.1)
[2020-01-13] MEDS ORDERED: DEXA0.5T15 PO (09:58)
[2020-01-13] MEDS ORDERED: LACT1CAP19 PO (09:58)
[2020-01-13] MEDS ORDERED: POTA10TA12 PO (09:58)
[2020-01-13] MEDS ORDERED: ALBU8HFA2 INH (09:58)
[2020-01-13] MEDS ORDERED: INSU100V8 SQ (09:58)
[2020-01-13] MEDS ORDERED: HYDR200T5 PO (09:58)
[2020-01-13] MEDS ORDERED: BUDE0.5A11 NEB (09:58)
--- NOTE | 2020-01-13 10:07 | DISCH ---
HOME HEALTH DISCHARGE/MEDS DISCHARGE INFORMATION: Discharge Date: Jan 13, 2020 Final Diagnosis: Pneumonia due to COVID virus Condition on Discharge: Stable HOME HEALTH: Face to Face: I certify this patient is under my care and that I, or a nurse practitioner or physician's food and nutrition services assistant working with me, had a face to face encounter that meets the physician face to face encounter requirements with this patient on [Date]. Medical Condition(s): Pneumonia, Other (WEEKLY LAB DRAW: CBC and CHEM7. REPEAT COVID TEST IN ONE WEEK) Long-Term For: Assess Cardiopulm Status, Assess/Skilled Observatio, Di abetic Care, Other: (Lab draw: CBC and CHEM 7 weekly. Repeat) POST DISCHARGE ORDERS: Activity Instructions for Disc: Activity as tolerated Weight Bearing Status after Di: No restrictions DIET AFTER DISCHARGE: ADA CHECKS AFTER DISCHARGE: Checks after discharge: Check blood sugar, ac/hs CERTIFICATION STATEMENT: Certification Statement: Based on the above finding, I certify that this patient is confined to the home and needs intermittent shelter care, physical therapy and/or speech therapy, or continues to need occupational therapy.~ This patient is under my care, and I have initiated the establishment of the plan of care.~ This patient will be followed by myself or a community physician who will periodically review the plan of care. DISCHARGE MEDICATIONS: Home Meds Active Scripts Prochlorperazine Maleate (Compazine) 10 Mg Tablet, 10 MG PO Q8HRS PRN for NAUSEA, #20 1 Refill Prov:LORENZA ARMIJO MD 06/14/16 Zolpidem Tartrate (AMBIEN) 5 Mg Tablet, 5 MG PO PRN QHS PRN for INSOMNIA, MAY REPEAT IN 1HR, #30 TAB Prov:LORENZA ARMIJO MD 06/14/16 Reported Medications Montelukast Sodium (MONTELUKAST SODIUM TABLET ) 10 Mg Tablet, 10 MG PO PRN DAILY PRN for ALLERGIES, TAB 0 Refills 01/08/20 Tramadol Hcl (TRAMADOL HCL) 50 Mg Tablet, 50 MG PO PRN Q6HRS PRN for PAIN, TAB 01/08/20 Aspirin (ASPIRIN) 325 Mg Tablet, 325 MG PO DAILY for Prophylaxis, TAB 01/08/20 Oxycodone HCl (Roxicodone) 5 Mg Tablet, 5 MG PO PRN Q6HRS PRN for PAIN, TAB 01/08/20 Vitamin A (VITAMIN A) 8,000 Unit Capsule, 8000 UNIT PO DAILY for Supplement, CAP 01/08/20 Glyburide (GLYBURIDE) 2.5 Mg Tablet, 1.25 MG PO DAILY 06/12/16 Esomeprazole Magnesium (NEXIUM CAPSULE) 40 Mg Capsule.dr, 40 MG PO DAILYAC, #30 CAP 0 Refills 06/12/16 Metformin Hcl (METFORMIN HCL) 1,000 Mg Tablet, 1000 MG PO BID for ANTI-DIABETIC, TAB 0 Refills 06/12/16 Fenofibrate Nanocrystallized (FENOFIBRATE) 145 Mg Tablet, 145 MG PO DAILY 06/12/16 Ferrous Sulfate (FERROUS SULFATE) 325 Mg Tablet, 325 MG PO DAILY 06/12/16 Alprazolam (XANAX) 0.5 Mg Tablet, 0.5 MG PO PRN TID PRN for ANXIETY / AGITATION, TAB 0 Refills 06/12/16 Melatonin (MELATONIN) 3 Mg Tablet, 1.5 MG PO QHS 06/12/16 Discontinued Reported Medications Losartan Potassium (LOSARTAN POTASSIUM) 100 Mg Tablet, 100 MG PO DAILY, TAB 06/12/16 LORENZA ARMIJO MD Jan 13, 2020 10:07
[2020-01-13 11:54] VITALS: BP 95/61
--- NOTE | 2020-01-13 12:28 | NUR ---
PATIENT IS DISCHARGED TO HOME WITH HOME HEALTH SERVICE, DISCHARGE INSTRUCTIONS AND MEDICATIONS ARE REVIEWED, EDUCATION ON COVID 19 WAS EXPLAINED AND GIVEN TO THE PATIENT, PT VERBALIZED UNDERSTANDING. PT LEFT ROOM 125 WITH MASK ON VIA W/C ACCOMPANIED BY STAFF MEMBER. PT IS TAKEN HOME BY SPOUSE VIA PERSONAL VEHICLE.
[2020-01-13] MEDS ORDERED: AZITHROMYCIN 250 MG TABLET. PO SCH (21:00)
== END 2020-01-13 12:30 | disposition home health service (06) | DRG 177 ==
LOC: 1 SOUTH 17:50
PROVIDERS: ADMIT Family Medicine; ATTEND Family Medicine
PROC: 5A09357 Assistance with Respiratory Ventilation, Less than 24 Consecutive Hours, Continuous Positive Airway Pressure (ICD-10-PCS; principal; 2020-01-08)
PROC: 5A09357 Assistance with Respiratory Ventilation, Less than 24 Consecutive Hours, Continuous Positive Airway Pressure (ICD-10-PCS; 2020-01-13)
DX: U07.1 COVID-19 (principal); J12.89 Other viral pneumonia; N17.0 Acute kidney failure with tubular necrosis; I50.23 Acute on chronic systolic (congestive) heart failure; E87.1 Hypo-osmolality and hyponatremia; J44.0 Chronic obstructive pulmonary disease with (acute) lower respiratory infection; J44.1 Chronic obstructive pulmonary disease with (acute) exacerbation; C90.01 Multiple myeloma in remission; I13.0 Hypertensive heart and chronic kidney disease with heart failure and stage 1 through stage 4 chronic kidney disease, or unspecified chronic kidney disease; D50.9 Iron deficiency anemia, unspecified; D63.0 Anemia in neoplastic disease; D70.1 Agranulocytosis secondary to cancer chemotherapy; E11.22 Type 2 diabetes mellitus with diabetic chronic kidney disease; E11.65 Type 2 diabetes mellitus with hyperglycemia; F41.9 Anxiety disorder, unspecified; T45.1X5A Adverse effect of antineoplastic and immunosuppressive drugs, initial encounter; N18.3 Chronic kidney disease, stage 3 (moderate); F32.9 Major depressive disorder, single episode, unspecified; E78.1 Pure hyperglyceridemia; Z85.828 Personal history of other malignant neoplasm of skin; Z82.49 Family history of ischemic heart disease and other diseases of the circulatory system; Y92.89 Other specified places as the place of occurrence of the external cause; R06.03 Acute respiratory distress
CPT/HCPCS: 36415; 70450; 71045; 71250; 80048; 80053; 81001; 82274; 82550; 82947; 83540; 83550; 83605; 83880; 84145; 84484; 85025; 85610; 93005; 94640; 96360; 96361; J0456; J0696; J1815; J1940; J2060; J7040; J7050; J7613; J8540; Q0164; 97530; 99285-25; U0003-CS

== ENCOUNTER 2020-07-08 11:00 | Inpatient (IN) | payer MEDICARE, OTHER ==
[~2020-07-08] VITALS: Ht 172.7 cm; Wt 84.1 kg
[2020-07-08] VITALS (9 sets, daily range): BP systolic 93–110; BP diastolic 49–61
[~2020-07-08 11:00] MED LIST changes: +ALBU8HFA2 INH; +ASPI325T8 PO; +BUDE0.5A11 NEB; +DEXA0.5T15 PO; +HYDR200T5 PO; +INSU100V8 SQ; +LACT1CAP19 PO; +MONT10TA80 PO; +OXYC5TAB88 PO; +POTA10TA12 PO; +TRAM50TA PO; +VITA80003 PO
--- NOTE | 2020-07-08 11:25 | PHYS DOC ---
Past History Past Medical History: Cancer, Diabetes Additional Past Medical Histor: Multiple myeloma, bone marrow transplant Past Surgical History: No Surgical History Alcohol Use: None Adult General Chief Complaint Chief Complaint: MULTIPLE COMPLAINTS HPI HPI Patient is a 77-year-old male who presents via POV with for fever. Patient has extensive past medical history most significant for multiple myeloma that was diagnosed 4 years ago. States it is localized to his spine and has been getting ongoing chemotherapy with recent sessions yesterday and day prior with unknown IV agent. Patient reportedly felt dizzy after session yesterday but was stable enough to go home. Yesterday evening, he reportedly had a fever T-max 100.9. No intervention was performed. Patient continued to feel weak and went into see primary care physician earlier this morning. On arrival, patient was triaged and found to be afebrile but was weak, hypotensive and tachycardic and subsequently advised to come to our ER for evaluation. Patient denies any known COVID-19 contact, vision changes, chest pain, shortness of breath, productive cough, abdominal pain, changes in bladder or bowel function. Admits lightheadedness and dizziness when changing positions, and generalized fatigue at this time. Patient is obviously immunocompromised as he is on current ch emotherapy, reports he takes 12 mg dexamethasone with each chemotherapy session. As a result, patient states his fingerstick blood sugar has been "higher than usual" with fingerstick blood sugar in the 400s yesterday, it has been in the 200s today Review of Systems Review of Systems Fourteen body systems of review of systems have been reviewed. See HPI for pertinent positives and negative responses, other aleman all other systems are negative, non-pertinent or non-contributory Allergies Allergies Allergies Coded Allergies Type Severity Reaction Last Updated Verified metoclopramide Allergy Unknown 01/08/20 Yes Physical Exam Physical Exam Constitutional: Pt is oriented to person, place, and time. Pt appears well-developed and well- nourished. HEENT: Head: Normocephalic and atraumatic. No foley sign, hearing aids in place bilaterally Conjunctivae and EOM are normal. Pupils are equal, round, and reactive to light. Oropharynx is clear and moist. Postnasal drip present No hematomas or lacerations or abrasions to face or scalp OP clear, no blood, no malocclusion, dentition intact Nares clear, no nasal septal hematoma Midface stable Neck: C-spine midline nontender, no step-offs Cardiovascular: Tachycardic rate, regular rhythm and 3+ holosystolic heart murmur appreciated Pulmonary/Chest: Effort normal and breath sounds normal. No respiratory distress. No wheezes. CTA bilaterally. Right-sided chest port present, no erythema streaking or other concerning signs of potential infection Abdominal: Soft. Bowel sounds are normal. Pt exhibits no distension. There is no tenderness. Musculoskeletal: No bony tenderness to extremities, no deformities, full ROM extremities Chest wall stable Pelvis stable and non-tender Neurological: Pt is alert and oriented to person, place, and time. Moving all extremities willfully, able to wiggle all fingers and toes Alert and oriented x 3 Sensation grossly intact Skin: Skin is warm and dry. No abrasions, no lacerations Psychiatric: Behavior is appropriate for situation Current Patient Data Vital Signs Vital Signs Date Time Temp Pulse Resp B/P (MAP) Pulse Ox O2 Delivery O2 Flow Rate FiO2 07/08/20 11:58 98.0 115 26 102/51 (68) 96 Lab Results Laboratory Tests Test 07/08/20 11:51 07/08/20 20:00 07/08/20 21:18 White Blood Count 5.8 x10^3/uL Red Blood Count 2.92 x10^6/uL Hemoglobin 9.4 g/dL Hematocrit 27.3 % Mean Corpuscular Volume 93 fL Mean Corpuscular Hemoglobin 32 pg Mean Corpuscular Hemoglobin Concent 34 g/dL Red Cell Distribution Width 17.4 % Platelet Count 160 x10^3/uL Neutrophils (%) (Auto) 69 % Lymphocytes (%) (Auto) 10 % Monocytes (%) (Auto) 14 % Eosinophils (%) (Auto) 6 % Basophils (%) (Auto) 1 % Neutrophils # (Auto) 4.0 x10^3uL Lymphocytes # (Auto) 0.6 x10^3/uL Monocytes # (Auto) 0.8 x10^3/uL Eosinophils # (Auto) 0.4 x10^3/uL Basophils # (Auto) 0.1 x10^3/uL Prothrombin Time 10.2 SEC Prothromb Time International Ratio 1.0 Activated Partial Thromboplast Time < 21 SEC Sodium Level 129 mmol/L Potassium Level 3.9 mmol/L Chloride Level 95 mmol/L Carbon Dioxide Level 21 mmol/L Anion Gap 13 Blood Urea Nitrogen 41 mg/dL Creatinine 2.1 mg/dL Estimated GFR (Cockcroft-Gault) 31.0 BUN/Creatinine Ratio 20 Glucose Level 282 mg/dL Lactic Acid Level 2.7 mmol/L Calcium Level 7.9 mg/dL Total Bilirubin 0.5 mg/dL Aspartate Amino Transf (AST/SGOT) 19 U/L Alanine Aminotransferase (ALT/SGPT) 20 U/L Alkaline Phosphatase 70 U/L Troponin I Quantitative 0.046 ng/mL Total Protein 6.1 g/dL Albumin 3.2 g/dL Albumin/Globulin Ratio 1.1 Urine Collection Type Unknown Urine Color Elza Urine Clarity Clear Urine pH 5.0 Urine Specific [place] 1.020 Urine Protein 30 mg/dl Urine Glucose (UA) 500 mg/dL Urine Ketones (Stick) Neg mg/dL Urine Blood Neg Urine Nitrite Neg Urine Bilirubin Neg Urine Urobilinogen Dipstick 0.2 mg/dL Urine Leukocyte Esterase Neg Urine RBC 0 /HPF Urine WBC Occ /HPF Urine Squamous Epithelial Cells Occ /LPF Urine Bacteria 0 /HPF Glucose (Fingerstick) 234 mg/dL Current Medications Medications (Trade) Dose Ordered Sig/Tena Route PRN Reason Start Time Stop Time Status Last Admin Dose Admin Sodium Chloride 1,000 ml @ 150 mls/hr 1X ONCE IV 07/08/20 11:30 07/08/20 18:09 DC Sodium Chloride 1,000 ml @ 1,000 mls/hr 1X ONCE IV 07/08/20 12:15 07/08/20 13:14 DC 07/08/20 12:09 Vancomycin HCl 2 gm/Sodium Chloride 500 ml @ 250 mls/hr 1X ONCE IV 07/08/20 13:00 07/08/20 14:59 DC 07/08/20 13:41 Cefepime HCl 2 gm/ Sodium Chloride 100 ml @ 200 mls/hr Q8HRS IV 07/08/20 14:00 07/08/20 15:26 DC Ondansetron HCl (Zofran) 4 mg PRN Q4HRS PRN IVP NAUSEA/VOMITING 07/08/20 12:45 07/09/20 12:44 Acetaminophen (Tylenol) 650 mg PRN Q4HRS PRN PO FEVER > 100.3'F 07/08/20 12:45 07/09/20 12:44 07/08/20 17:22 Nitroglycerin (Nitrostat) 0.4 mg PRN Q5MIN PRN SL CHEST PAIN 07/08/20 12:45 07/09/20 12:44 Sodium Chloride 500 ml @ 0 mls/hr 1X ONCE IV 07/08/20 13:00 07/08/20 13:10 DC 07/08/20 13:46 Ondansetron HCl (Zofran) 4 mg STK-MED ONCE .ROUTE 07/08/20 16:05 07/08/20 16:05 DC Cefepime HCl 2 gm/ Sodium Chloride 100 ml @ 200 mls/hr Q12H IV 07/08/20 18:00 07/09/20 05:13 Vancomycin HCl (Vanco Per Pharmacy) 1 each PRN DAILY PRN MC SEE COMMENTS 07/08/20 18:15 07/08/20 18:59 Enoxaparin Sodium (Lovenox 40mg Syringe) 40 mg Q24H SQ 07/08/20 19:00 07/08/20 20:04 Vancomycin HCl 1.25 gm/Sodium Chloride 250 ml @ 166.667 mls/hr Q24H IV 07/09/20 14:00 Vancomycin HCl (Vancomycin Trough Level) 1 each 1X ONCE MC 07/10/20 13:30 07/10/20 13:31 Alprazolam (Xanax) 0.5 mg PRN TID PRN PO ANXIETY / AGITATION 07/08/20 19:00 Aspirin (Heaven Aspirin) 325 mg DAILY PO 07/09/20 09:00 Diphenoxylate HCl/ Atropine (Lomotil) 1 tab QID PO 07/08/20 21:00 07/08/20 21:08 Famotidine (Pepcid) 20 mg DAILY PO 07/09/20 09:00 Lidocaine/ Prilocaine (Emla) 1 quyen BID TP 07/08/20 21:00 Melatonin (Melatonin) 5 mg QHS PO 07/08/20 21:00 UNV Oxycodone HCl (Roxicodone) 5 mg PRN Q6HRS PRN PO MODERATE TO SEVERE PAIN 07/08/20 19:00 Tamsulosin HCl (Flomax) 0.4 mg DAILY PO 07/09/20 09:00 Tramadol HCl (Ultram) 50 mg PRN Q6HRS PRN PO MILD TO MODERATE PAIN 07/08/20 19:00 Tramadol HCl (Ultram) 50 mg PRN Q6HRS PRN PO pain 07/08/20 19:00 UNV Acyclovir (Zovirax) 800 mg BID PO 07/08/20 21:00 07/08/20 21:13 Cyanocobalamin (Vitamin B-12) 1,000 mcg DAILY PO 07/09/20 09:00 Citalopram Hydrobromide (CeleXA) 20 mg DAILY PO 07/09/20 09:00 Cetirizine HCl (ZyrTEC) 10 mg DAILY PO 07/09/20 09:00 Glyburide (Diabeta) 5 mg DAILY PO 07/09/20 09:00 Magnesium Oxide (Magnesium Oxide) 400 mg DAILY PO 07/09/20 09:00 Non-Formulary Medication (Melatonin ) 10 mg HS PO 07/08/20 21:00 UNV Metformin HCl (Glucophage) 1,000 mg BIDWMEALS PO 07/08/20 21:00 07/08/20 21:09 Ondansetron HCl (Zofran Odt) 8 mg PRN QID PRN PO NAUSEA/VOMITING 07/08/20 21:00 Non-Formulary Medication (Pomalidomide (Pomalyst)) 1 cap DAILY PO 07/09/20 09:00 UNV Prochlorperazine Maleate (Compazine) 10 mg PRN Q8HRS PRN PO NAUSEA 07/08/20 21:15 Melatonin (Melatonin) 9 mg QHS PO 07/08/20 21:00 07/08/20 21:09 EKG EKG EKG ordered and interpreted by myself at 1148 hrs. as sinus rhythm at 110 bpm, prolonged QRS at 130 otherwise unremarkable intervals, left axis deviation, ri ght bundle branch block present without any acute ischemic findings, no STEMI Radiology/Procedures Radiology/Procedures AP portable chest radiograph 07/08/2020 Clinical History: Fever. Multiple myeloma.. An AP erect portable digital radiograph of the chest was obtained. Comparison study is dated 01/05/2020. A right subclavian Dbowjv-c-Jafb type catheter is unchanged in position. The cardiac silhouette is normal in size. The thoracic aorta is minimally tortuous. Atherosclerotic calcification of the thoracic aorta is seen. No acute pulmonary infiltrate is noted. No pneumothorax or pleural effusion is seen. Degenerative changes are seen involving the thoracic spine and both shoulders. Impression: No acute abnormality is seen. Electronically signed by: Herman Bartlett MD (07/08/2020 11:39 AM) [id number] Heart Score HEART Score for Chest Pain: HEART Score for Chest Pain Response (Comments) Value History Slighlty/Non-Suspicious 0 ECG Nonspecific Repolarizatio 1 Age > 65 2 Risk Factors >3 Risk Factors or Hx CAD 2 Total 5 Risk Factors: Risk Factors: DM, Current or recent (<one month) smoker, HTN, HLP, family history of CAD, obesity. Risk Scores: Risk Factors: DM, Current or recent (<one month) smoker, HTN, HLP, family history of CAD, obesity. Course & Med Decision Making Course & Med Decision Making Pertinent Labs and Imaging studies reviewed. (See chart for details) Discussed diagnoses of SIRS, acute kidney injury and fever of unknown origin in an immunocompromised patient with known history of multiple myeloma on chemotherapy and steroids I contacted patient's PCP who referred him here he will also be serving as hospitalist, he agreed need for admission under his care in ICU setting at [facility] I updated patient on proposed plan of care, he and his both were amenable for hospital admission for continued inpatient medical management Critical Care Time This patient required critical care. Due to the fact that the patient required a significant amount of one on one physician - patient contact time, ordering and review of studies, arranging urgent treatment with development of a management plan, evaluation of patients response to treatment with frequent reassessments, and discussions with other providers this patient required 75 minutes of critical care time. Critical care time was indicated due to the inherent inst ability and/or potential for instability in this patient. The critical care time that is allocated to this patient is above and beyond any time spent on any other billable procedures performed on this patient. Dragon Disclaimer Dragon Disclaimer This electronic medical record was generated, in whole or in part, using a voice recognition dictation system. Departure Departure: Impression: Primary Impression: SIRS (systemic inflammatory response syndrome) Additional Impressions: YENIFER (acute kidney injury) Multiple myeloma Disposition: 09 ADMITTED INPT THIS HOSP Admitting Physician: Lorenza Armijo Condition: STABLE Referrals: LORENZA ARMIJO MD (PCP) Problem Qualifiers CARLEY FARMER 9, 2021 11:25
[2020-07-08] MEDS ORDERED: IV NORMAL SALINE 1,000ML 1,000 ML IV ONE ×2 (11:30→12:15)
--- NOTE | 2020-07-08 11:48 | RAD ---
AP portable chest radiograph 07/08/2020 Clinical History: Fever. Multiple myeloma.. An AP erect portable digital radiograph of the chest was obtained. Comparison study is dated 01/05/2020. A right subclavian Nkremn-i-Klhn type catheter is unchanged in position. The cardiac silhouette is no rmal in size. The thoracic aorta is minimally tortuous. Atherosclerotic calcification of the thoracic aorta is seen. No acute pulmonary infiltrate is noted. No pneumothorax or pleural effusion is seen. Degenerative changes are seen involving the thoracic spine and both shoulders. Impression: No acute abnormality is seen. Electronically signed by: Herman Bartlett MD (07/08/2020 11:39 AM) [id number]
[2020-07-08 12:11] LABS: BASO # 0.1 x10^3/uL (0.0-0.2); BASO % 1 % (0-3); EOS # 0.4 x10^3/uL (0.0-0.7); EOS % 6 % (0-3); HEMATOCRIT 27.3 % (39.0-53.0); HEMOGLOBIN 9.4 g/dL (13.0-17.5); LYMPH # 0.6 x10^3/uL (1.0-4.8); LYMPH % 10 % (24-48); MEAN CORPUSCULAR HEMOGLOBIN 32 pg (25-35); MEAN CORPUSCULAR HGB CONC 34 g/dL (31-37); MEAN CORPUSCULAR VOLUME 93 fL (79-100); MONO # 0.8 x10^3/uL (0.0-1.1); MONO % 14 % (0-9); NEUT % 69 % (31-73); PLATELET COUNT 160 x10^3/uL (140-400); RED BLOOD COUNT 2.92 x10^6/uL (4.30-5.70); RED CELL DISTRIBUTION WIDTH 17.4 % (11.5-14.5); WHITE BLOOD COUNT 5.8 x10^3/uL (4.0-11.0)
[2020-07-08 12:22] LABS: CALCIUM 7.9 mg/dL (8.5-10.1); CREATININE 2.1 mg/dL (0.7-1.3); POTASSIUM 3.9 mmol/L (3.5-5.1)
[2020-07-08 12:28] LABS: ALBUMIN 3.2 g/dL (3.4-5.0); ALBUMIN/GLOBULIN RATIO 1.1 (1.0-1.7); TOTAL BILIRUBIN 0.5 mg/dL (0.2-1.0); TOTAL PROTEIN 6.1 g/dL (6.4-8.2)
[2020-07-08] MEDS ORDERED: ACETAMINOPHEN 325 MG TABLET PO PRN (12:45)
[2020-07-08] MEDS ORDERED: NITROGLYCERIN SUBLINGUAL 0.4 MG BOTTLE OF 25. SL PRN (12:45)
[2020-07-08] MEDS ORDERED: ONDANSETRON PF 4 MG/2 ML VIAL. IVP PRN (12:45)
[2020-07-08] MEDS ORDERED: IV NORMAL SALINE 500ML 500 ML IV ONE (13:00)
[2020-07-08] MEDS ORDERED: VANCOMYCIN 2 GM in IV NORMAL SALINE 500ML 500 ML IV ONE (13:00)
--- NOTE | 2020-07-08 13:48 | EKG ---
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
[2020-07-08] MEDS ORDERED: CEFEPIME HCL 2 GM in IV NORMAL SALINE 100ML 100 ML IV SCH (14:00)
[2020-07-08] MEDS ORDERED: ONDANSETRON PF 4 MG/2 ML VIAL. ONE (16:05)
[2020-07-08] MEDS ORDERED: FAMO20TA5 PO (18:37)
[2020-07-08] MEDS ORDERED: SULF1TAB24 PO (18:37)
[2020-07-08] MEDS ORDERED: TAMS0.4C97 PO (18:37)
[2020-07-08] MEDS ORDERED: CYAN100031 PO (18:37)
[2020-07-08] MEDS ORDERED: DIPH1TAB PO (18:37)
[2020-07-08] MEDS ORDERED: ACYC800T PO (18:37)
[2020-07-08] MEDS ORDERED: FEXO180T16 PO (18:37)
[2020-07-08] MEDS ORDERED: ONDA4TAB7 PO (18:37)
[2020-07-08] MEDS ORDERED: LIDO30CR TP (18:37)
[2020-07-08] MEDS ORDERED: SILD20TA2 PO (18:37)
[2020-07-08] MEDS ORDERED: MELA5TAB20 PO (18:37)
[2020-07-08] MEDS ORDERED: TRAM-48 PO (18:37)
[2020-07-08] MEDS ORDERED: POMA2CAP PO (18:37)
[2020-07-08] MEDS ORDERED: ESCITALOPRAM OX10 MG PO (18:37)
[2020-07-08] MEDS ORDERED: MAGN400T5 PO (18:37)
[2020-07-08] MEDS: VANCOMYCIN PER PHARMACY MC PRN (18:59)
[2020-07-08] MEDS ORDERED: oxyCODONE IR 5 MG TABLET PO PRN (19:00)
[2020-07-08] MEDS ORDERED: traMADol 50 MG TABLET PO PRN (19:00)
--- NOTE | 2020-07-08 19:02 | NUR ---
Pharmacy Vancomycin Dosing Note S:Consulted to monitor and dose vancomycin started 07/08/20. O:OMKAR SAHA is a 75 year old M with , SIRS . Height: 5 feet, 8 inches Weight: 84.1 kg Orion Body Weight: 68.40 Adjusted Body Weight: 74.68 Dosing Weight: Actual Other Antibiotics: Cefepime 2gm IVPB [id number]. LABS: Last BUN: 41 Last Creatinine: 2.1 Creatinine Clearance: 33 Last WBC: 5.8 Last Procalcitonin: Tmax (past 24 hours): 98.0 Microbiology: I/O: Drug Levels: Last level: on at Last dose given 07/08/20 at 1341 Vancomycin Dosing: Loading Dose: 2000 mg x1 Dosing Weight: Actual Target Trough: 15-20 A: Based on weight and est. CrCl: P: 1. Give Vancomycin 2000mg bolus, followed by Vancomycin 1250 mg IV q24h. 2. Follow up Trough level on 07/10/20 at 1330. 3. Pharmacy will continue to monitor, follow and adjust therapy as needed. Kevin Alex [facility], 07/08/20 [id number]
[2020-07-08] MEDS: CEFEPIME HCL 2 GM in IV NORMAL SALINE 100ML 100 ML IV SCH (20:04)
[2020-07-08] MEDS: ENOXAPARIN 40 MG/0.4 ML SYRINGE. SQ SCH (20:04)
--- NOTE | 2020-07-08 20:30 | NUR ---
Pt was admitted before this nurse got here. Pt verbalizes understanding of POC. Pt almost refused COVID swab then was compliant. Pt's expressed concern for pt that whenever he is in the ICU he gets ICU delirium. Bed alarm on patient. A&O x 4 at this time. Will continue to monitor.
[2020-07-08] MEDS ORDERED: NON FORMULARY ITEM (Melatonin 10 MG) PO SCH (21:00)
[2020-07-08] MEDS ORDERED: ONDANSETRON ODT 4 MG TAB.RAPDIS PO PRN (21:00)
[2020-07-08] MEDS: LIDOCAINE/PRILOCAINE TOPICAL CREAM 5GM TUBE. TP SCH (21:00)
[2020-07-08] MEDS ORDERED: MELATONIN 3 MG TABLET PO SCH (21:00)
[2020-07-08] MEDS: DIPHENOXYLATE/ATROPINE TABLET. PO SCH (21:08)
[2020-07-08] MEDS: MELATONIN 3 MG TABLET PO SCH (21:09)
[2020-07-08] MEDS: metFORMIN 500 MG TABLET PO SCH (21:09)
[2020-07-08] MEDS: ACYCLOVIR 200 MG CAPSULE PO SCH (21:13)
[2020-07-08] MEDS ORDERED: PROCHLORPERAZINE 5 MG TABLET. PO PRN (21:15)
[2020-07-08 21:37] LABS: BACTERIA,URINE 0 /HPF (0-FEW); BILIRUBIN,URINE NEG (NEG); CLARITY,URINE CLEAR; COLOR,URINE AMBER; GLUCOSE,URINE 500 mg/dL (NEG); NITRITE,URINE NEG (NEG); RBC,URINE 0 /HPF (0-2); SQUAMOUS EPITHELIAL CELL,UR OCC /LPF; UROBILINOGEN,URINE 0.2 mg/dL (0.2 mg/dL); WBC,URINE OCC /HPF (0-4)
[2020-07-09] VITALS (25 sets, daily range): BP systolic 89–121; BP diastolic 48–97
--- NOTE | 2020-07-09 03:43 | NUR ---
When pt gets up his heart rate goes up to the 120's-130's. Pt does have some SOB upon exertion; however, sats remain above 90%. Will continue to monitor.
[2020-07-09] MEDS: CEFEPIME HCL 2 GM in IV NORMAL SALINE 100ML 100 ML IV SCH (05:13)
[2020-07-09 07:06] LABS: BASO % 1 % (0-3); EOS # 0.6 x10^3/uL (0.0-0.7); EOS % 14 % (0-3); HEMATOCRIT 23.7 % (39.0-53.0); HEMOGLOBIN 8.3 g/dL (13.0-17.5); LYMPH # 0.6 x10^3/uL (1.0-4.8); LYMPH % 14 % (24-48); MEAN CORPUSCULAR HEMOGLOBIN 32 pg (25-35); MEAN CORPUSCULAR HGB CONC 35 g/dL (31-37); MEAN CORPUSCULAR VOLUME 91 fL (79-100); MONO # 0.3 x10^3/uL (0.0-1.1); MONO % 8 % (0-9); NEUT # 2.8 x10^3uL (1.8-7.7); NEUT % 64 % (31-73); PLATELET COUNT 136 x10^3/uL (140-400); RED BLOOD COUNT 2.61 x10^6/uL (4.30-5.70); RED CELL DISTRIBUTION WIDTH 16.8 % (11.5-14.5); WHITE BLOOD COUNT 4.5 x10^3/uL (4.0-11.0)
[2020-07-09] MEDS ORDERED: IPRATRPIUM/ALBUTEROL 0.5/2.5MG 3 ML NEBU. NEB SCH ×2 (08:00→12:00)
[2020-07-09] MEDS: FAMOTIDINE 20 MG TABLET PO SCH (08:09)
[2020-07-09] MEDS: CYANOCOBALAMIN (VITAMIN B-12) 1,000 MCG TABLET. PO SCH (08:09)
[2020-07-09] MEDS: DIPHENOXYLATE/ATROPINE TABLET. PO SCH ×3 (08:09→17:31)
[2020-07-09] MEDS: TAMSULOSIN 0.4 MG CAP.ER.24H. PO SCH (08:09)
[2020-07-09] MEDS: glyBURIDE 5 MG TABLET PO SCH (08:10)
[2020-07-09] MEDS: metFORMIN 500 MG TABLET PO SCH ×2 (08:10→17:31)
[2020-07-09] MEDS: ASPIRIN 325 MG TABLET PO SCH (08:10)
[2020-07-09] MEDS: POMALIDOMIDE 2 MG PO SCH (08:10)
[2020-07-09] MEDS: CITALOPRAM 20 MG TABLET. PO SCH (08:10)
[2020-07-09] MEDS: MAGNESIUM OXIDE 400 MG TABLET PO SCH (08:10)
[2020-07-09] MEDS: CETIRIZINE HCL 10 MG TABLET PO SCH (08:10)
[2020-07-09] MEDS: ACYCLOVIR 200 MG CAPSULE PO SCH ×2 (08:24→20:15)
[2020-07-09] MEDS: LIDOCAINE/PRILOCAINE TOPICAL CREAM 5GM TUBE. TP SCH ×2 (08:24→20:16)
--- NOTE | 2020-07-09 09:30 | RAD ---
Portable AP chest 07/09/2020. Reason for exam: Shortness of breath. Comparison is made with a study of the previous day. Right IJ central line remains in place. There may be a few increased markings in the mid left lung. N o consolidation is seen. There is suggestion of a small amount of subpulmonic fluid. Heart size is no rmal. IMPRESSION: Possible small effusions and early left-sided infiltrate. Electronically signed by: Celestino Pickett Jr., MD (07/09/2020 9:27 AM) [id number]
[2020-07-09] MEDS ORDERED: PIP/TAZO PER PHARMACY MC PRN (10:15)
[2020-07-09 11:18] LABS: FECAL OB PT NEGATIVE (NEG)
[2020-07-09] MEDS: PIPERACILLIN/TAZOBACTAM 3.375 GM in IV NORMAL SALINE 50ML 50 ML IV SCH ×3 (12:59→23:48)
[2020-07-09] MEDS ORDERED: INSULIN LISPRO 300 UNITS/3 ML VIAL. SQ SCH ×2 (15:00→17:00)
[2020-07-09] MEDS: VANCOMYCIN 1.25 GM in IV NORMAL SALINE 250ML 250 ML IV SCH (15:09)
--- NOTE | 2020-07-09 15:24 | PN ---
DATE: SUBJECTIVE: A 75-year-old male came in with sepsis. The patient is immunocompromised with his just receiving chemotherapy for his multiple myeloma down at . The patient was admitted. He was extremely weak, diaphoretic. Although, CBC did not really show much, his lactic acid was elevated. He is also a diabetic. He also has chronic renal failure ____ low albumin. In any case, the patient was admitted for further evaluation of his sepsis, possible bacteremia from just recent infusions for the multiple myeloma. Otherwise, he is doing somewhat better today, a little bit constipated, but other than that seems to be actually in very good spirits. The patient is much more strong today than he was yesterday. He was unable to stand up at all yesterday, he was so weak, we had to wheel him out of the clinic to help him into the car. In any case, the IV antibiotics seem to be working. The source of this infection still remains a point of investigation, although because of his shortness of breath this morning, did show possible early left-sided infiltrative process, which was not evident on the first x-ray, but probably because of hydration and the like positioning, he did show possibly pneumonic process. The patient did have COVID-19 back in, I believe, November or December 2019 and it will be interesting he is being swabbed again for just in case since he is immunocompromised with that infusion of chemo. We will continue to monitor him, especially carefully there. PHYSICAL EXAMINATION: VITAL SIGNS: His blood pressure was dropped down to 99/58 (NC), respiratory rate 20, pulse 100. Presently just 98.9, but over here in the last 24 hours, he has been as high as 101.6, so will continue to monitor him with that elevated temperature. He also had a pulse rate of 115, respiratory rate of approximately 26. The patient at one time had to be put on BiPAP and CPAP, but that has regained with some breathing exercises and medication up. Otherwise, the patient is a very pleasant gentleman. LUNGS: Diminished. Some expiratory wheezes. Some coarse breath sounds. CARDIOVASCULAR: Regular sinus rhythm. ABDOMEN: Soft, nontender. EXTREMITIES: No clubbing, cyanosis, or edema. NEUROLOGIC: The patient is alert and oriented. Speech is fluent, spontaneous, and appropriate. We will continue to monitor him carefully. IMPRESSION: Sepsis, pneumonia, post chemotherapy, immunocompromised, multiple myeloma, moderate protein malnutrition, anemia probably secondary to his myeloma and his chemotherapy, hyponatremia, chronic kidney disease stage 3B, and type 2 diabetes. PLAN: As above. Continue with IV antibiotic therapy. Monitor blood sugars and we will make adjustments on his breathing treatments as well. LORENZA ARMIJO MD DR: CHANO/gricel JOB#: [id number] / [id number]
--- NOTE | 2020-07-09 17:00 | NUR ---
PT EXPRESSED CONCERN OF URINARY RETENTION, NEW ORDERS OF FLOMAX PLACED. BLADDER SCANNED WITH ONLY 200 CC OF URINE FOUND IN THE BLADDER. WILL CTM.
[2020-07-09] MEDS: ALPRAZolam 0.5 MG TABLET PO PRN (17:35)
[2020-07-09] MEDS ORDERED: DIGOXIN IV 500 MCG/2 ML AMPUL. IV ONE (20:00)
[2020-07-09] MEDS: ZOLPIDEM 5 MG TABLET. PO PRN (20:15)
[2020-07-09] MEDS: ENOXAPARIN 40 MG/0.4 ML SYRINGE. SQ SCH (20:15)
[2020-07-09] MEDS: MELATONIN 3 MG TABLET PO SCH (20:16)
[2020-07-09] MEDS: METOPROLOL TART IMMED RELEASE 25 MG TABLET. PO SCH (20:55)
--- NOTE | 2020-07-09 23:08 | EKG ---
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
--- NOTE | 2020-07-09 23:55 | NUR ---
At start of shift pt with irregular HR noted to be in 130-150's, appears to be Afib with RVR on monitor. Pt denies chest pain/discomfort or fast heart rate feeling, stated he "feels fine." Pt A&Ox4, cooperative and pleasant with assessment. Pt is [place], with hearing aids in place. EKG obtained, interpretation was irregular rhythm, no P wave found. Dr Centeno called and new orders received - IV Digoxin x1 and consult cardiology. IV Digoxin given per order with some rate improvement noted, now 110-120's. Cardio paged and return call from Dr Rodgers, new orders received - Metoprolol 25mg PO q6hrs & start 1st dose now. Pt took HS medications and PRN Ambien with ice cream, used urinal before bed. Home CPAP at bedside and place on at bedtime. Pt resting in bed comfortably with rate improvement noted, rhythm is in & out of S.tach to Afib.
[2020-07-10] VITALS (16 sets, daily range): BP systolic 90–114; BP diastolic 47–62
[2020-07-10] MEDS: METOPROLOL TART IMMED RELEASE 25 MG TABLET. PO SCH ×5 (01:30→18:00)
[2020-07-10] MEDS: PIPERACILLIN/TAZOBACTAM 3.375 GM in IV NORMAL SALINE 50ML 50 ML IV SCH ×4 (05:38→23:18)
[2020-07-10 06:32] LABS: BASO % 1 % (0-3); EOS % 28 % (0-3); HEMATOCRIT 24.5 % (39.0-53.0); HEMOGLOBIN 8.4 g/dL (13.0-17.5); LYMPH # 0.6 x10^3/uL (1.0-4.8); LYMPH % 17 % (24-48); MEAN CORPUSCULAR HEMOGLOBIN 32 pg (25-35); MEAN CORPUSCULAR HGB CONC 34 g/dL (31-37); MEAN CORPUSCULAR VOLUME 93 fL (79-100); MONO # 0.3 x10^3/uL (0.0-1.1); MONO % 8 % (0-9); NEUT # 1.5 x10^3uL (1.8-7.7); NEUT % 46 % (31-73); PLATELET COUNT 121 x10^3/uL (140-400); RED BLOOD COUNT 2.63 x10^6/uL (4.30-5.70); RED CELL DISTRIBUTION WIDTH 16.8 % (11.5-14.5); WHITE BLOOD COUNT 3.4 x10^3/uL (4.0-11.0)
[2020-07-10 06:38] LABS: CALCIUM 7.1 mg/dL (8.5-10.1); CREATININE 1.3 mg/dL (0.7-1.3); POTASSIUM 3.7 mmol/L (3.5-5.1)
--- NOTE | 2020-07-10 08:15 | PDOC2 ---
CARDIAC CONSULT DATE OF CONSULT DOS: DATE: 07/10/20 TIME: 08:05 REASON FOR CONSULT Reason for Consult New AFIB with RVR REFERRING PHYSICIAN Referring Physician Dr. Centeno SOURCE Source: Chart review, Patient HPI History of Present Illness This is a 75 yo male who presented secondary to weakness, dizziness, hypotension, and fevers. Has a history of multiple myeloma. Had chemotherapy yesterday. Was slightly dizzy following treatment. Was also weak and noted with fevers. Saw PCP who recommended him to come to the ED for further evaluation and treatment. Was noted in AFIB with RVR, which prompted this consult. PAST MEDICAL HISTORY Cardiovascular: hyperipidemia Pulmonary: Other (CESAR) Heme/Onc: Cancer (multiple myeloma ) Musculoskeletal: Osteoarthritis Renal/: Chronic renal insuff, Other (retention ) Endocrine: Diabetes PAST SURGICAL HISTORY Past Surgical History: No pertinent history FAMILY HISTORY Family History: Heart Disease SOCIAL HISTORY Smoke: No ALCOHOL: none Drugs: None Lives: with Family CURRENT MEDICATIONS Current Medications Current Medications Sodium Chloride 1,000 ml @ 150 mls/hr 1X ONCE IV ; Start 07/08/20 at 11:30; Stop 07/08/20 at 18:09; Status DC Sodium Chloride 1,000 ml @ 1,000 mls/hr 1X ONCE IV Last administered on 07/08/20at 12:09; Start 07/08/20 at 12:15; Stop 07/08/20 at 13:14; Status DC Vancomycin HCl 2 gm/Sodium Chloride 500 ml @ 250 mls/hr 1X ONCE IV Last administered on 07/08/20at 13:41; Start 07/08/20 at 13:00; Stop 07/08/20 at 14:59; Status DC Cefepime HCl 2 gm/ Sodium Chloride 100 ml @ 200 mls/hr Q8HRS IV ; Start 07/08/20 at 14:00; Stop 07/08/20 at 15:26; Status DC Ondansetron HCl (Zofran) 4 mg PRN Q4HRS PRN IVP NAUSEA/VOMITING; Start 07/08/20 at 12:45; Stop 07/09/20 at 12:44; Status DC Acetaminophen (Tylenol) 650 mg PRN Q4HRS PRN PO FEVER > 100.3'F Last administered on 07/08/20at 17:22; Start 07/08/20 at 12:45; Stop 07/09/20 at 12:44; Status DC Nitroglycerin (Nitrostat) 0.4 mg PRN Q5MIN PRN SL CHEST PAIN; Start 07/08/20 at 12:45; Stop 07/09/20 at 12:44; Status DC Sodium Chloride 500 ml @ 0 mls/hr 1X ONCE IV Last administered on 07/08/20at 13:46; Start 07/08/20 at 13:00; Stop 07/08/20 at 13:10; Status DC Ondansetron HCl (Zofran) 4 mg STK-MED ONCE .ROUTE ; Start 07/08/20 at 16:05; Stop 07/08/20 at 16:05; Status DC Cefepime HCl 2 gm/ Sodium Chloride 100 ml @ 200 mls/hr Q12H IV Last administered on 07/09/20at 05:13; Start 07/08/20 at 18:00; Stop 07/09/20 at 10:10; Status DC Vancomycin HCl (Vanco Per Pharmacy) 1 each PRN DAILY PRN MC SEE COMMENTS Last administered on 07/08/20at 18:59; Start 07/08/20 at 18:15 Enoxaparin Sodium (Lovenox 40mg Syringe) 40 mg Q24H SQ Last administered on 07/09/20at 20:15; Start 07/08/20 at 19:00 Vancomycin HCl 1.25 gm/Sodium Chloride 250 ml @ 166.667 mls/hr Q24H IV Last administered on 07/09/20at 15:09; Start 07/09/20 at 14:00 Vancomycin HCl (Vancomycin Trough Level) 1 each 1X ONCE MC ; Start 07/10/20 at 13:30; Stop 07/10/20 at 13:31 Alprazolam (Xanax) 0.5 mg PRN TID PRN PO ANXIETY / AGITATION Last administered on 07/09/20at 17:35; Start 07/08/20 at 19:00 Aspirin (Heaven Aspirin) 325 mg DAILY PO Last administered on 07/09/20at 08:10; Start 07/09/20 at 09:00 Diphenoxylate HCl/ Atropine (Lomotil) 1 tab QID PO Last administered on 07/09/20at 17:31; Start 07/08/20 at 21:00; Stop 07/09/20 at 17:35; Status DC Famotidine (Pepcid) 20 mg DAILY PO Last administered on 07/09/20at 08:09; Start 07/09/20 at 09:00 Lidocaine/ Prilocaine (Emla) 1 claudine BID TP ; Start 07/08/20 at 21:00 Melatonin (Melatonin) 5 mg QHS PO ; Start 07/08/20 at 21:00; Status UNV Oxycodone HCl (Roxicodone) 5 mg PRN Q6HRS PRN PO MODERATE TO SEVERE PAIN; Start 07/08/20 at 19:00 Tamsulosin HCl (Flomax) 0.4 mg DAILY PO Last administered on 07/09/20at 08:09; Start 07/09/20 at 09:00 Tramadol HCl (Ultram) 50 mg PRN Q6HRS PRN PO MILD TO MODERATE PAIN; Start 07/08/20 at 19:00 Tramadol HCl (Ultram) 50 mg PRN Q6HRS PRN PO pain; Start 07/08/20 at 19:00; Status UNV Acyclovir (Zovirax) 800 mg BID PO Last administered on 07/09/20at 20:15; Start 07/08/20 at 21:00 Cyanocobalamin (Vitamin B-12) 1,000 mcg DAILY PO Last administered on 07/09/20at 08:09; Start 07/09/20 at 09:00 Citalopram Hydrobromide (CeleXA) 20 mg DAILY PO Last administered on 07/09/20at 08:10; Start 07/09/20 at 09:00 Cetirizine HCl (ZyrTEC) 10 mg DAILY PO Last administered on 07/09/20at 08:10; Start 07/09/20 at 09:00 Glyburide (Diabeta) 5 mg DAILY PO Last administered on 07/09/20at 08:10; Start 07/09/20 at 09:00 Magnesium Oxide (Magnesium Oxide) 400 mg DAILY PO Last administered on 07/09/20at 08:10; Start 07/09/20 at 09:00 Non-Formulary Medication (Melatonin ) 10 mg HS PO ; Start 07/08/20 at 21:00; Status UNV Metformin HCl (Glucophage) 1,000 mg BIDWMEALS PO Last administered on 07/09/20at 17:31; Start 07/08/20 at 21:00 Ondansetron HCl (Zofran Odt) 8 mg PRN QID PRN PO NAUSEA/VOMITING; Start 07/08/20 at 21:00 Non-Formulary Medication (Pomalidomide (Pomalyst)) 1 cap DAILY PO Last administered on 07/09/20at 08:10; Start 07/09/20 at 09:00 Prochlorperazine Maleate (Compazine) 10 mg PRN Q8HRS PRN PO NAUSEA; Start 07/08/20 at 21:15 Melatonin (Melatonin) 9 mg QHS PO Last administered on 07/08/20at 21:09; Start 07/08/20 at 21:00 Albuterol/ Ipratropium (Duoneb) 3 ml RTQID NEB ; Start 07/09/20 at 08:00; Stop 07/09/20 at 11:00; Status DC Piperacillin Sod/ Tazobactam Sod (Zosyn Per Pharmacy) 1 each PRN DAILY PRN MC SEE COMMENTS; Start 07/09/20 at 10:15 Piperacillin Sod/ Tazobactam Sod 3.375 gm/Sodium Chloride 50 ml @ 100 mls/hr Q6HRS IV Last administered on 07/10/20at 05:38; Start 07/09/20 at 12:00 Albuterol/ Ipratropium (Duoneb) 3 ml RTQID NEB ; Start 07/09/20 at 12:00; Stop 07/09/20 at 11:01; Status DC Zolpidem Tartrate (Ambien) 5 mg PRN QHS PRN PO INSOMNIA, MAY REPEAT IN 1HR Last administered on 07/09/20at 20:15; Start 07/09/20 at 11:00 Insulin Human Lispro (HumaLOG) 15 units 1X SQ ; Start 07/09/20 at 15:00; Stop 07/09/20 at 15:01; Status DC Insulin Human Lispro (HumaLOG) 10 units TIDWMEALS SQ ; Start 07/09/20 at 17:00; Stop 07/09/20 at 15:01; Status DC Tamsulosin HCl (Flomax) 0.4 mg DAILY PO ; Start 07/10/20 at 09:00; Stop 07/10/20 at 07:58; Status DC Digoxin (Lanoxin) 250 mcg 1X ONCE IV Last administered on 07/09/20at 20:16; Start 07/09/20 at 20:00; Stop 07/09/20 at 20:13; Status DC Metoprolol Tartrate (Lopressor) 25 mg Q6HRS PO Last administered on 07/10/20at 02:20; Start 07/09/20 at 20:45 Active Scripts Active Compazine (Prochlorperazine Maleate) 10 Mg Tablet 10 Mg PO Q8HRS PRN Reported Lomotil Tablet (Diphenoxylate Hcl/Atropine) 1 Each Tablet 1 Tab PO QID B-12 (Cyanocobalamin (Vitamin B-12)) 1,000 Mcg Tablet.er 1 Tab PO DAILY 30 Days Magnesium Oxide 400 Mg Tablet 1 Tab PO DAILY Lidocaine-Prilocaine Cream (Lidocaine/Prilocaine) 30 Gm Cream..g. 1 Claudine TP UD Escitalopram Oxalate 10 Mg Tablet 1 Tab PO DAILY Fexofenadine Hcl 180 Mg Tablet 180 Tab PO DAILY Famotidine 20 Mg Tablet 1 Tab PO BID Acyclovir 800 Mg Tablet 800 Mg PO BID Bactrim Ds Tablet (Sulfamethoxazole/Trimethoprim) 1 Each Tablet 1 Tab PO BID 10 Days Ultram (Tramadol HCl) 50 Mg Tablet 1 Tab PO PRN Q6HRS PRN MDD 4 Tablet(s) 7 Days Flomax (Tamsulosin Hcl) 0.4 Mg Cap.er.24h 1 Cap PO DAILY Sildenafil (Sildenafil Citrate) 20 Mg Tablet 100 Mg PO PRN Pomalyst (Pomalidomide) 2 Mg Capsule 1 Cap PO DAILY 28 Days Melatonin 5 Mg Tab.rapdis 10 Mg PO HS Zofran (Ondansetron Hcl) 4 Mg Tablet 8 Mg PO PRN QID Tramadol Hcl (Tramadol HCl) 50 Mg Tablet 50 Mg PO PRN Q6HRS PRN Aspirin 325 Mg Tablet 325 Mg PO DAILY Roxicodone (Oxycodone HCl) 5 Mg Tablet 5 Mg PO PRN Q6HRS PRN Glyburide 2.5 Mg Tablet 5 Mg PO DAILY Metformin Hcl 1,000 Mg Tablet 1,000 Mg PO BID Xanax (Alprazolam) 0.5 Mg Tablet 0.5 Mg PO PRN TID PRN Melatonin 3 Mg Tablet 5 Mg PO QHS ALLERGIES Allergies: Coded Allergies: levofloxacin (Verified Allergy, Unknown, 07/08/20) metoclopramide (Verified Allergy, Unknown, 01/08/20) ROS Review of Systems 14 point ROS conducted with pertinent positives noted above in hPI PHYSICAL EXAM General: Alert, Oriented X3, Cooperative, mild distress HEENT: Atraumatic Lungs: Clear to auscultation Heart: Other (IRRR; tele AFIB ) Abdomen: Soft Extremities: No edema, Normal pulses Skin: No breakdown Neuro: Normal speech, Sensation intact Psych/Mental Status: Mental status NL, Mood NL MUSCULOSKELETAL: Osteoarthritic changes both hands VITALS Vital Signs Vital Signs Date Time Temp Pulse Resp B/P (MAP) Pulse Ox O2 Delivery O2 Flow Rate FiO2 07/10/20 06:45 84 20 97/53 (68) 97 home CPAP 07/10/20 05:50 97.9 LABS LABS Laboratory Tests Test 07/08/20 11:51 07/08/20 20:00 07/08/20 21:18 07/09/20 06:00 White Blood Count 5.8 x10^3/uL (4.0-11.0) 4.5 x10^3/uL (4.0-11.0) Red Blood Count 2.92 x10^6/uL (4.30-5.70) 2.61 x10^6/uL (4.30-5.70) Hemoglobin 9.4 g/dL (13.0-17.5) 8.3 g/dL (13.0-17.5) Hematocrit 27.3 % (39.0-53.0) 23.7 % (39.0-53.0) Mean Corpuscular Volume 93 fL (79-100) 91 fL (79-100) Mean Corpuscular Hemoglobin 32 pg (25-35) 32 pg (25-35) Mean Corpuscular Hemoglobin Concent 34 g/dL (31-37) 35 g/dL (31-37) Red Cell Distribution Width 17.4 % (11.5-14.5) 16.8 % (11.5-14.5) Platelet Count 160 x10^3/uL (140-400) 136 x10^3/uL (140-400) Neutrophils (%) (Auto) 69 % (31-73) 64 % (31-73) Lymphocytes (%) (Auto) 10 % (24-48) 14 % (24-48) Monocytes (%) (Auto) 14 % (0-9) 8 % (0-9) Eosinophils (%) (Auto) 6 % (0-3) 14 % (0-3) Basophils (%) (Auto) 1 % (0-3) 1 % (0-3) Neutrophils # (Auto) 4.0 x10^3uL (1.8-7.7) 2.8 x10^3uL (1.8-7.7) Lymphocytes # (Auto) 0.6 x10^3/uL (1.0-4.8) 0.6 x10^3/uL (1.0-4.8) Monocytes # (Auto) 0.8 x10^3/uL (0.0-1.1) 0.3 x10^3/uL (0.0-1.1) Eosinophils # (Auto) 0.4 x10^3/uL (0.0-0.7) 0.6 x10^3/uL (0.0-0.7) Basophils # (Auto) 0.1 x10^3/uL (0.0-0.2) 0.0 x10^3/uL (0.0-0.2) Prothrombin Time 10.2 SEC (9.4-11.4) Prothromb Time International Ratio 1.0 (0.9-1.1) Activated Partial Thromboplast Time < 21 SEC (23-33) Sodium Level 129 mmol/L (136-145) Potassium Level 3.9 mmol/L (3.5-5.1) Chloride Level 95 mmol/L (98-107) Carbon Dioxide Level 21 mmol/L (21-32) Anion Gap 13 (6-14) Blood Urea Nitrogen 41 mg/dL (8-26) Creatinine 2.1 mg/dL (0.7-1.3) Estimated GFR (Cockcroft-Gault) 31.0 BUN/Creatinine Ratio 20 (6-20) Glucose Level 282 mg/dL (70-99) Lactic Acid Level 2.7 mmol/L (0.4-2.0) Calcium Level 7.9 mg/dL (8.5-10.1) Total Bilirubin 0.5 mg/dL (0.2-1.0) Aspartate Amino Transf (AST/SGOT) 19 U/L (15-37) Alanine Aminotransferase (ALT/SGPT) 20 U/L (16-63) Alkaline Phosphatase 70 U/L (46-116) Troponin I Quantitative 0.046 ng/mL (0-0.055) Total Protein 6.1 g/dL (6.4-8.2) Albumin 3.2 g/dL (3.4-5.0) Albumin/Globulin Ratio 1.1 (1.0-1.7) Urine Collection Type Unknown Urine Color Elza Urine Clarity Clear Urine pH 5.0 Urine Specific [place] 1.020 Urine Protein 30 mg/dl (NEG-TRACE) Urine Glucose (UA) 500 mg/dL (NEG) Urine Ketones (Stick) Neg mg/dL (NEG) Urine Blood Neg (NEG) Urine Nitrite Neg (NEG) Urine Bilirubin Neg (NEG) Urine Urobilinogen Dipstick 0.2 mg/dL (0.2 mg/dL) Urine Leukocyte Esterase Neg (NEG) Urine RBC 0 /HPF (0-2) Urine WBC Occ /HPF (0-4) Urine Squamous Epithelial Cells Occ /LPF Urine Bacteria 0 /HPF (0-FEW) Glucose (Fingerstick) 234 mg/dL (70-99) Iron Level 20 ug/dL (65-175) Total Iron Binding Capacity 294 ug/dL (250-450) Iron Saturation 7 % (15-34) Test 07/09/20 08:30 07/09/20 16:30 07/10/20 06:15 Stool Occult Blood Negative (NEG) Glucose (Fingerstick) 178 mg/dL (70-99) White Blood Count 3.4 x10^3/uL (4.0-11.0) Red Blood Count 2.63 x10^6/uL (4.30-5.70) Hemoglobin 8.4 g/dL (13.0-17.5) Hematocrit 24.5 % (39.0-53.0) Mean Corpuscular Volume 93 fL (79-100) Mean Corpuscular Hemoglobin 32 pg (25-35) Mean Corpuscular Hemoglobin Concent 34 g/dL (31-37) Red Cell Distribution Width 16.8 % (11.5-14.5) Platelet Count 121 x10^3/uL (140-400) Neutrophils (%) (Auto) 46 % (31-73) Lymphocytes (%) (Auto) 17 % (24-48) Monocytes (%) (Auto) 8 % (0-9) Eosinophils (%) (Auto) 28 % (0-3) Basophils (%) (Auto) 1 % (0-3) Neutrophils # (Auto) 1.5 x10^3uL (1.8-7.7) Lymphocytes # (Auto) 0.6 x10^3/uL (1.0-4.8) Monocytes # (Auto) 0.3 x10^3/uL (0.0-1.1) Eosinophils # (Auto) 1.0 x10^3/uL (0.0-0.7) Basophils # (Auto) 0.0 x10^3/uL (0.0-0.2) Sodium Level 135 mmol/L (136-145) Potassium Level 3.7 mmol/L (3.5-5.1) Chloride Level 103 mmol/L (98-107) Carbon Dioxide Level 22 mmol/L (21-32) Anion Gap 10 (6-14) Blood Urea Nitrogen 25 mg/dL (8-26) Creatinine 1.3 mg/dL (0.7-1.3) Estimated GFR (Cockcroft-Gault) 54.0 Glucose Level 180 mg/dL (70-99) Calcium Level 7.1 mg/dL (8.5-10.1) ASSESSMENT/PLAN Assessment/Plan 1. Weakness, dizziness 2. Fevers 3. Leukopenia 4. Multiple Myeloma; with current chemotherapy 5. New onset AFIB with RVR; remains in AFIB. Rate now controlled 6. YENIFER on CKD 7. Diabetes, II 8. Hyperlipidemia 9. Anemia, thrombocytopenia Recommendations Metoprolol for rate control as BP allows Add ASA with monitoring of PLTs TSH Outpatient echo to assess LV systolic function Will arrange event monitor to guide therapy JOSE LUIS VILLAGOMEZ APRN Jul 10, 2020 08:15
[2020-07-10] MEDS ORDERED: TAMSULOSIN 0.4 MG CAP.ER.24H. PO SCH (09:00)
[2020-07-10] MEDS: LIDOCAINE/PRILOCAINE TOPICAL CREAM 5GM TUBE. TP SCH ×2 (09:00→20:43)
[2020-07-10] MEDS: metFORMIN 500 MG TABLET PO SCH ×2 (10:06→18:42)
[2020-07-10] MEDS: FINASTERIDE 5 MG TABLET. PO SCH (10:06)
[2020-07-10] MEDS: ASPIRIN 325 MG TABLET PO SCH (10:06)
[2020-07-10] MEDS: TAMSULOSIN 0.4 MG CAP.ER.24H. PO SCH (10:07)
[2020-07-10] MEDS: glyBURIDE 5 MG TABLET PO SCH (10:07)
[2020-07-10] MEDS: MAGNESIUM OXIDE 400 MG TABLET PO SCH (10:07)
[2020-07-10] MEDS: FAMOTIDINE 20 MG TABLET PO SCH (10:07)
[2020-07-10] MEDS: CYANOCOBALAMIN (VITAMIN B-12) 1,000 MCG TABLET. PO SCH (10:07)
[2020-07-10] MEDS: ACYCLOVIR 200 MG CAPSULE PO SCH ×2 (10:08→20:37)
[2020-07-10] MEDS: CITALOPRAM 20 MG TABLET. PO SCH (10:08)
[2020-07-10] MEDS: POMALIDOMIDE 2 MG PO SCH (10:09)
[2020-07-10] MEDS: CETIRIZINE HCL 10 MG TABLET PO SCH (10:09)
[2020-07-10 13:30] LABS: HDLC 32 mg/dL (40-60); TRIGLYCERIDES 579 mg/dL (0-150); VLDLC 115 mg/dL (0-40)
[2020-07-10 15:13] LABS: VANC TR 5.9 mcg/mL (10.0-20.0)
[2020-07-10] MEDS: VANCOMYCIN 1.25 GM in IV NORMAL SALINE 250ML 250 ML IV SCH (16:02)
[2020-07-10] MEDS: VANCOMYCIN PER PHARMACY MC PRN (16:15)
--- NOTE | 2020-07-10 16:15 | NUR ---
Pharmacy Vancomycin Dosing Note S:Consulted to monitor and dose vancomycin started 07/08/20. O:OMKAR SAHA is a 75 year old M with , SIRS . Height: 5 feet, 8 inches Weight: 84.2 kg [place] Body Weight: 68.40 Adjusted Body Weight: 74.72 Dosing Weight: Actual Other Antibiotics: ZOSYN 3.375GM IV Q6H LABS: Last BUN: 25 Last Creatinine: 1.3 Creatinine Clearance: 52.7 Last WBC: 3.4 Last Procalcitonin: Tmax (past 24 hours): 98.0 Microbiology: I/O: Drug Levels: Last Trough level: 5.9 on 07/10/20 at 1400 Last dose given 07/09/20 at 1500 Vancomycin Dosing: Loading Dose: 2000 mg x1 Dosing Weight: Actual Target Trough: 15-20 A: Based on: PHYSICIAN REQUEST FOR DOSING P: 1. Change Vancomycin 1250 mg IV q12h 2. Follow up Trough level on 07/12/20 at 0330 3. Pharmacy will continue to monitor, follow and adjust therapy as needed. KATIE FAYE, 07/10/20 [id number]
--- NOTE | 2020-07-10 18:22 | NUR ---
Patient has been pleasent, cooperative, stable, alert, and oriented throughout shift. Patients heart rate is NSR with a controlled rate in the 80's. Patients blood pressure remains a little soft with BP readings of 109/54 prior to metoprolol administration and 109/56 post metoprolol administration. Patient states he is feeling better and also states he will follow up with his Oncologist at in reference to the new AFIB onset and to request follow up on cardiology's post discharge recommendations.
[2020-07-10] MEDS: ENOXAPARIN 40 MG/0.4 ML SYRINGE. SQ SCH (19:28)
--- NOTE | 2020-07-10 19:49 | PN ---
DATE: SUBJECTIVE: A 75-year-old male basically history of sepsis and pneumonia, immunocompromised with his chemotherapy for his multiple myeloma. The patient is feeling somewhat better. OBJECTIVE: VITAL SIGNS: Blood pressure 110/56, respiratory rate 20, pulse 98. He is running still low-grade temperature, still receiving antibiotic therapy there. GENERAL: Otherwise, in good spirits in this pleasant gentleman. LUNGS: Diminished throughout, poor movement of air. CARDIOVASCULAR: Regular sinus rhythm. ABDOMEN: Soft, nontender. EXTREMITIES: No clubbing, cyanosis, nor edema. IMPRESSION AND PLAN: Sepsis, pneumonia events of sepsis, immunocompromised patient with multiple myeloma. New onset of atrial fibrillation with rapid ventricular response, converted back into sinus rhythm, chronic kidney disease, type 2 diabetes, hyperlipidemia and thrombocytopenia. We will continue present drug regimen and make further evaluation on him as indicated. LORENZA ARMIJO MD DR: CHANO/gricel JOB#: [id number] / [id number]
[2020-07-10] MEDS: traMADol 50 MG TABLET PO PRN (20:37)
[2020-07-10] MEDS: ZOLPIDEM 5 MG TABLET. PO PRN ×2 (20:37→22:53)
[2020-07-10] MEDS: MELATONIN 3 MG TABLET PO SCH (20:37)
[2020-07-10] MEDS: DIPHENOXYLATE/ATROPINE TABLET. PO PRN (22:10)
[2020-07-11] MEDS: VANCOMYCIN 1.25 GM in IV NORMAL SALINE 250ML 250 ML IV SCH ×2 (03:24→16:50)
[2020-07-11] MEDS: PIPERACILLIN/TAZOBACTAM 3.375 GM in IV NORMAL SALINE 50ML 50 ML IV SCH ×4 (05:30→22:54)
[2020-07-11 07:00] VITALS: BP 108/64
[2020-07-11] MEDS: CYANOCOBALAMIN (VITAMIN B-12) 1,000 MCG TABLET. PO SCH (07:51)
[2020-07-11] MEDS: FAMOTIDINE 20 MG TABLET PO SCH (07:51)
[2020-07-11] MEDS: CETIRIZINE HCL 10 MG TABLET PO SCH (07:51)
[2020-07-11] MEDS: ASPIRIN 325 MG TABLET PO SCH (07:51)
[2020-07-11] MEDS: FINASTERIDE 5 MG TABLET. PO SCH (07:51)
[2020-07-11] MEDS: CITALOPRAM 20 MG TABLET. PO SCH (07:52)
[2020-07-11] MEDS: glyBURIDE 5 MG TABLET PO SCH (07:52)
[2020-07-11] MEDS: TAMSULOSIN 0.4 MG CAP.ER.24H. PO SCH (07:52)
[2020-07-11] MEDS: metFORMIN 500 MG TABLET PO SCH ×2 (07:52→16:50)
[2020-07-11] MEDS: MAGNESIUM OXIDE 400 MG TABLET PO SCH (07:52)
[2020-07-11] MEDS: ACYCLOVIR 200 MG CAPSULE PO SCH ×2 (07:52→20:39)
[2020-07-11] MEDS: METOPROLOL TART IMMED RELEASE 25 MG TABLET. PO SCH ×2 (07:53→20:40)
[2020-07-11] MEDS: LIDOCAINE/PRILOCAINE TOPICAL CREAM 5GM TUBE. TP SCH ×2 (07:55→20:40)
--- NOTE | 2020-07-11 08:23 | PDOC ---
JOSE LUIS VILLAGOMEZ [employer]ERCIAL [employer]ENT 07/11/20 0823: CARDIO Progress Notes Date & Time Date of Service DATE: 07/11/20 TIME: 08:22 Time of Evaluation 08:22 Subjective Notes Feeling much better today. No chest pain, palpitations, dizziness, diaphoresis Vitals Vitals Vital Signs Date Time Temp Pulse Resp B/P (MAP) Pulse Ox O2 Delivery O2 Flow Rate FiO2 07/11/20 07:53 78 110/60 07/10/20 23:23 98.6 24 97 Room Air Weight Weight [ ] Input and Output I.O. Intake and Output 07/11/20 07:00 Intake Total 1560 ml Output Total 525 ml Balance 1035 ml Intake Oral 960 ml IV Total 600 ml Output Urine Total 525 ml Laboratory Labs Laboratory Tests Test 07/09/20 08:30 07/09/20 16:30 07/10/20 06:15 07/10/20 14:00 Stool Occult Blood Negative (NEG) Glucose (Fingerstick) 178 mg/dL (70-99) White Blood Count 3.4 x10^3/uL (4.0-11.0) Red Blood Count 2.63 x10^6/uL (4.30-5.70) Hemoglobin 8.4 g/dL (13.0-17.5) Hematocrit 24.5 % (39.0-53.0) Mean Corpuscular Volume 93 fL (79-100) Mean Corpuscular Hemoglobin 32 pg (25-35) Mean Corpuscular Hemoglobin Concent 34 g/dL (31-37) Red Cell Distribution Width 16.8 % (11.5-14.5) Platelet Count 121 x10^3/uL (140-400) Neutrophils (%) (Auto) 46 % (31-73) Lymphocytes (%) (Auto) 17 % (24-48) Monocytes (%) (Auto) 8 % (0-9) Eosinophils (%) (Auto) 28 % (0-3) Basophils (%) (Auto) 1 % (0-3) Neutrophils # (Auto) 1.5 x10^3uL (1.8-7.7) Lymphocytes # (Auto) 0.6 x10^3/uL (1.0-4.8) Monocytes # (Auto) 0.3 x10^3/uL (0.0-1.1) Eosinophils # (Auto) 1.0 x10^3/uL (0.0-0.7) Basophils # (Auto) 0.0 x10^3/uL (0.0-0.2) Sodium Level 135 mmol/L (136-145) Potassium Level 3.7 mmol/L (3.5-5.1) Chloride Level 103 mmol/L (98-107) Carbon Dioxide Level 22 mmol/L (21-32) Anion Gap 10 (6-14) Blood Urea Nitrogen 25 mg/dL (8-26) Creatinine 1.3 mg/dL (0.7-1.3) Estimated GFR (Cockcroft-Gault) 54.0 Glucose Level 180 mg/dL (70-99) Calcium Level 7.1 mg/dL (8.5-10.1) Triglycerides Level 579 mg/dL (0-150) Cholesterol Level 173 mg/dL (0-200) LDL Cholesterol, Calculated mg/dL (0-100) VLDL Cholesterol, Calculated 115 mg/dL (0-40) Non-HDL Cholesterol Calculated 141 mg/dL (0-129) HDL Cholesterol 32 mg/dL (40-60) Cholesterol/HDL Ratio 5.0 Thyroid Stimulating Hormone (TSH) 2.010 uIU/mL (0.358-3.740) Vancomycin Level Trough 5.9 mcg/mL (10.0-20.0) Vancomycin Last Dose Date 07/09/20 Vancomycin Last Dose Time 1400 Test 07/11/20 05:30 Sodium Level 134 mmol/L (136-145) Potassium Level 3.0 mmol/L (3.5-5.1) Chloride Level 103 mmol/L (98-107) Carbon Dioxide Level 23 mmol/L (21-32) Anion Gap 8 (6-14) Blood Urea Nitrogen 25 mg/dL (8-26) Creatinine 1.0 mg/dL (0.7-1.3) Estimated GFR (Cockcroft-Gault) 73.0 Glucose Level 87 mg/dL (70-99) Calcium Level 7.0 mg/dL (8.5-10.1) Microbiology Micro Microbiology 07/08/20 Blood Culture - Preliminary, Resulted NO GROWTH AFTER 2 DAYS... Physical Exams HEENT: Neck Supple W Full Motion Chest: Symmetric Lungs: Clear to Auscultation Heart: RRR Abdomen: Soft N/T Neurology: alert, oriented, follow commands Assessment Assessment 1. Weakness, dizziness 2. Fevers 3. Leukopenia 4. Multiple Myeloma; with current chemotherapy 5. New onset AFIB with RVR; converted back to SR 6. YENIFER on CKD 7. Diabetes, II 8. Hyperlipidemia 9. Anemia, thrombocytopenia 10. Hypokalemia; replaced Recommendations Metoprolol for rate control ASA therapy for now Outpatient echo to assess L LV systolic function Will arrange outpatient event monitor to note AFIB burde, guide therapy Follow up in our office with Dr. Rodgers as scheduled. HECTOR RODGERS MD 07/12/20 1641: JOSE LUIS VILLAGOMEZ APRN Jul 11, 2020 08:23 HECTOR RODGERS MD Jul 12, 2020 16:41
[2020-07-11] MEDS: POMALIDOMIDE 2 MG PO SCH (08:27)
[2020-07-11] MEDS ORDERED: ELECTROLYTE (NON-ICU) PROTOCOL. MC PRN (10:00)
[2020-07-11 11:00] VITALS: BP 112/58
[2020-07-11] MEDS ORDERED: POTASSIUM CHLORIDE 20 MEQ TABLET.ER. PO ONE (11:15)
[2020-07-11] MEDS: DIPHENOXYLATE/ATROPINE TABLET. PO PRN ×2 (13:30→16:49)
[2020-07-11 15:00] VITALS: BP 122/62
[2020-07-11] MEDS: traMADol 50 MG TABLET PO PRN ×2 (16:50→22:54)
[2020-07-11] MEDS: ALPRAZolam 0.5 MG TABLET PO PRN (18:28)
[2020-07-11] MEDS: ENOXAPARIN 40 MG/0.4 ML SYRINGE. SQ SCH (18:29)
[2020-07-11 19:00] VITALS: BP 115/56
--- NOTE | 2020-07-11 20:01 | PN ---
DATE: 07/11/2020 SUBJECTIVE: A 75-year-old gentleman in with sepsis, pneumonia of unknown etiology and immunocompromised patient with multiple myeloma. The patient is doing markedly better; however, his potassium has come down to 3 and we are trying to replace that carefully. Otherwise, the patient says he is feeling somewhat better overall. OBJECTIVE: VITAL SIGNS: Blood pressure 120/60, respiratory rate 20, pulse 100, afebrile. GENERAL: The patient is alert and oriented. LUNGS: Diminished throughout, poor movement of air. CARDIOVASCULAR: Regular sinus rhythm. ABDOMEN: Soft, nontender. EXTREMITIES: No clubbing, cyanosis, nor edema. IMPRESSION: Sepsis, pneumonia of unspecified etiology, multiple myeloma, atrial fibrillation with rapid ventricular response, but converted back into sinus rhythm, chronic kidney disease stage 3A, type 2 diabetes, hyperlipidemia and thrombocytopenia. PLAN: Continue with present drug regimen of potassium replacement and hopefully ready for discharge here soon. LORENZA ARMIJO MD DR: CHANO/gricel JOB#: [id number] / [id number]
[2020-07-11] MEDS: MELATONIN 3 MG TABLET PO SCH (20:40)
[2020-07-11] MEDS: ZOLPIDEM 5 MG TABLET. PO PRN ×2 (20:40→22:55)
[2020-07-11 23:00] VITALS: BP 120/64
[2020-07-12 04:25] LABS: ALBUMIN 2.5 g/dL (3.4-5.0); ALBUMIN/GLOBULIN RATIO 0.9 (1.0-1.7); CALCIUM 7.4 mg/dL (8.5-10.1); POTASSIUM 3.3 mmol/L (3.5-5.1); TOTAL BILIRUBIN 0.3 mg/dL (0.2-1.0); TOTAL PROTEIN 5.2 g/dL (6.4-8.2)
[2020-07-12 04:38] LABS: VANC TR 15.3 mcg/mL (10.0-20.0)
[2020-07-12] MEDS: VANCOMYCIN 1.25 GM in IV NORMAL SALINE 250ML 250 ML IV SCH (04:43)
[2020-07-12] MEDS: PIPERACILLIN/TAZOBACTAM 3.375 GM in IV NORMAL SALINE 50ML 50 ML IV SCH (06:30)
[2020-07-12 07:00] VITALS: BP 129/68
[2020-07-12 08:34] VITALS: BP 120/64
[2020-07-12] MEDS: METOPROLOL TART IMMED RELEASE 25 MG TABLET. PO SCH (08:34)
[2020-07-12] MEDS: CETIRIZINE HCL 10 MG TABLET PO SCH (08:34)
[2020-07-12] MEDS: FAMOTIDINE 20 MG TABLET PO SCH (08:34)
[2020-07-12] MEDS: ASPIRIN 325 MG TABLET PO SCH (08:34)
[2020-07-12] MEDS: CITALOPRAM 20 MG TABLET. PO SCH (08:34)
[2020-07-12] MEDS: FINASTERIDE 5 MG TABLET. PO SCH (08:34)
[2020-07-12] MEDS: TAMSULOSIN 0.4 MG CAP.ER.24H. PO SCH (08:34)
[2020-07-12] MEDS: ACYCLOVIR 200 MG CAPSULE PO SCH (08:34)
[2020-07-12] MEDS: metFORMIN 500 MG TABLET PO SCH (08:34)
[2020-07-12] MEDS: MAGNESIUM OXIDE 400 MG TABLET PO SCH (08:34)
[2020-07-12] MEDS: glyBURIDE 5 MG TABLET PO SCH (08:34)
[2020-07-12] MEDS: CYANOCOBALAMIN (VITAMIN B-12) 1,000 MCG TABLET. PO SCH (08:35)
[2020-07-12] MEDS: LIDOCAINE/PRILOCAINE TOPICAL CREAM 5GM TUBE. TP SCH (08:35)
[2020-07-12] MEDS: POMALIDOMIDE 2 MG PO SCH (08:40)
[2020-07-12] MEDS ORDERED: POTASSIUM CHLORIDE 20 MEQ TABLET.ER. PO ONE (08:45)
[2020-07-12] MEDS: DIPHENOXYLATE/ATROPINE TABLET. PO PRN (09:31)
[2020-07-12] MEDS ORDERED: FINA5TAB4 PO (10:08)
[2020-07-12] MEDS ORDERED: CEFD300C PO (10:08)
--- NOTE | 2020-07-12 11:50 | NUR ---
Pt discharged home, ambulated to car without difficulty. New meds called into [facility]. All questions and follow up appts reviewed with patient. Pt gathered all belongings. A/Ox4
--- NOTE | 2020-08-04 18:37 | DS ---
DATE OF DISCHARGE: 07/12/2020 HOSPITAL COURSE: A 75-year-old gentleman came in with the diagnosis of sepsis. He is an immunocompromised individual being treated for multiple myeloma down at [facility]. The patient came in fairly weak, diaphoretic, elevated lactic acid as well as he has chronic renal failure as well as diabetes. The patient was able to get IV antibiotic therapy. He was given additional fluids and vancomycin and Zosyn, as well as IV fluids for hydration. The patient made relatively good progress. His hemoglobin remained low as did his white count of 3.4 and then 8.4 and 24 respectively there. Chemistries showed a low potassium of 3 and he was adjusted with electrolyte replacement and albumin was low at 2.5. Blood sugars were monitored carefully. Lactic acid was high as 2.7. His BUN and creatinine did come down from 41 and 2.1, down to 19 and 1. The patient's otherwise cholesterol was basically unremarkable. He was also seen by Cardiology for chest pain, palpitations, and diaphoresis. The patient also had some A-Fib with RVR and converted back into sinus rhythm. The patient made good progress overall and was discharged home. IMPRESSION: Sepsis, acute bronchitis, acute on top of chronic renal failure, multiple myeloma, undergoing chemotherapy, immunocompromised individual, hypertriglyceridemia, severe protein malnutrition, hypokalemia, hyponatremia, anemia probably secondary to his multiple myeloma, leukopenia, neutropenia secondary to chemotherapy and his chemotherapy, dizziness, weakness, diaphoresis, atrial fibrillation with rapid ventricular response, thrombocytopenia, type 2 diabetes. PLAN: The patient to continue on antibiotic therapy, be discharged home, follow up with his Oncology team down at and will be on a regular diet. LORENZA ARMIJO MD DR: CHANO/gricel JOB#: [id number] / [id number]
== END 2020-07-12 11:50 | disposition home or self-care (01) | DRG 871 ==
LOC: ER 11:00 → ICU 12:35 → ER 15:25
PROVIDERS: ADMIT Family Medicine; ATTEND Family Medicine
PROC: 5A09357 Assistance with Respiratory Ventilation, Less than 24 Consecutive Hours, Continuous Positive Airway Pressure (ICD-10-PCS; principal; 2020-07-08)
PROC: 5A09357 Assistance with Respiratory Ventilation, Less than 24 Consecutive Hours, Continuous Positive Airway Pressure (ICD-10-PCS; 2020-07-09)
DX: A41.9 Sepsis, unspecified organism (principal); J18.9 Pneumonia, unspecified organism; E43 Unspecified severe protein-calorie malnutrition; D84.9 Immunodeficiency, unspecified; E44.0 Moderate protein-calorie malnutrition; E87.1 Hypo-osmolality and hyponatremia; N17.9 Acute kidney failure, unspecified; C90.00 Multiple myeloma not having achieved remission; D69.6 Thrombocytopenia, unspecified; E11.22 Type 2 diabetes mellitus with diabetic chronic kidney disease; E78.5 Hyperlipidemia, unspecified; E87.6 Hypokalemia; I48.91 Unspecified atrial fibrillation; N18.32 Chronic kidney disease, stage 3b; G47.33 Obstructive sleep apnea (adult) (pediatric); M19.90 Unspecified osteoarthritis, unspecified site; Z88.8 Allergy status to other drugs, medicaments and biological substances; Z82.49 Family history of ischemic heart disease and other diseases of the circulatory system; Z20.822 Contact with and (suspected) exposure to COVID-19; T45.1X5A Adverse effect of antineoplastic and immunosuppressive drugs, initial encounter; D70.1 Agranulocytosis secondary to cancer chemotherapy; J20.9 Acute bronchitis, unspecified; E78.1 Pure hyperglyceridemia
CPT/HCPCS: 36415; 71045; 80048; 80053; 80061; 80202; 81001; 82274; 82947; 83540; 83550; 83605; 84443; 84484; 85025; 85610; 85730; 87040; 93005; 96361; 96365; 99291; 99292; J0692; J1160; J1650; J2543; J3370; J7040; J7050; Q0162; U0003; J7030

== ENCOUNTER 2021-05-30 04:00 | Emergency (ER) | payer MEDICARE, OTHER ==
[~2021-05-30] VITALS: Ht 172.7 cm; Wt 89.2 kg
[~2021-05-30 04:00] MED LIST changes: +ACYC800T88 PO; +CEFD300C PO; +CYAN100031 PO; +ESCITALOPRAM OX10 MG PO; +FAMO20TA5 PO; +FEXO180T16 PO; +FINA5TAB4 PO; +LIDO30CR2 TP; +MAGN400T48 PO; +MELA5TAB20 PO; +ONDA4TAB7 PO; +POMA2CAP PO; +POTA-116 PO; -POTA10TA12 PO; +SILD20TA2 PO; +SULF1TAB24 PO; +TAMS0.4C97 PO; +TRAM-48 PO
[2021-05-30] MEDS ORDERED: DEXTROSE 50% 25 GM / 50ML DISP.SYRIN. IV ONE (04:05)
[2021-05-30] MEDS: DEXTROSE 50% 25 GM / 50ML DISP.SYRIN. IV ONE (04:11)
--- NOTE | 2021-05-30 04:17 | PHYS DOC ---
Past History Past Medical History: Cancer, Diabetes Additional Past Medical Histor: Multiple myeloma, bone marrow transplant Past Surgical History: No Surgical History Alcohol Use: None General Adult EDM: Chief Complaint: HYPOGLYCEMIA HPI: HPI: 75-year-old male presents via EMS with low blood sugar. Patient is a type II diabetic. He was acting altered in the middle the night and his called EMS. The patient does not remember anything until he woke up and EMS was there. EMS reportedly found the patient's blood sugar to be low and gave him oral glucose and glucagon. On arrival to the emergency room the patient's blood sugar was 13. The patient states that he does not believe it has ever been low. He is on Metformin and glyburide for his diabetes. He is not on insulin. He was feeling normal prior to this episode. Review of Systems: Review of Systems: Constitutional: Denies fever or chills Eyes: Denies change in visual acuity HENT: Denies nasal congestion or sore throat Respiratory: Denies cough or shortness of breath Cardiovascular: Denies chest pain or edema GI: Denies abdominal pain, nausea, vomiting, bloody stools or diarrhea : Denies dysuria Musculoskeletal: Denies back pain or joint pain Integument: Denies rash Neurologic: Denies headache, focal weakness or sensory changes Endocrine: Denies polyuria or polydipsia Lymphatic: Denies swollen glands Psychiatric: Denies depression or anxiety Current Medications: Current Meds: Current Medications Medications (Trade) Dose Ordered Sig/Tena Start Time Stop Time Status Last Admin Dose Admin Dextrose (Dextrose 50%-Water Syringe) 25 gm STK-MED ONCE 05/30/21 04:05 05/30/21 04:06 [place] Allergies: Allergies: Allergies Coded Allergies Type Severity Reaction Last Updated Verified levofloxacin Allergy Unknown 07/08/20 Yes metoclopramide Allergy Unknown 01/08/20 Yes Physical Exam: PE: Constitutional: Well developed, well nourished, no acute distress, non-toxic appearance. [] HENT: Normocephalic, atraumatic, bilateral external ears normal, oropharynx moist, no oral exudates, nose normal. [] Eyes: PERRLA, EOMI, conjunctiva normal, no discharge. [] Neck: Normal range of motion, no tenderness, supple, no stridor. [] Cardiovascular: Heart rate regular rhythm, no murmur [] Lungs & Thorax: Bilateral breath sounds clear to auscultation [] Abdomen: Bowel sounds normal, soft, no tenderness, no masses, no pulsatile masses. [] Skin: Warm, dry, no erythema, no rash. [] Back: No tenderness, no CVA tenderness. [] Extremities: No tenderness, no cyanosis, no clubbing, ROM intact, no edema. [] Neurologic: Alert and oriented X 3, normal motor function, normal sensory fun ction, no focal deficits noted. [] Psychologic: Affect normal, judgement normal, mood normal. [] Current Patient Data: Labs: Laboratory Tests Test 05/30/21 04:04 Glucose (Fingerstick) 13 mg/dL (70-99) *L EKG: EKG: [] Radiology/Procedures: Radiology/Procedures: [] Heart Score: C/O Chest Pain: N/A Risk Factors: Risk Factors: DM, Current or recent (<one month) smoker, HTN, HLP, family history of CAD, obesity. Risk Scores: Score 0 - 3: 2.5% MACE over next 6 weeks - Discharge Home Score 4 - 6: 20.3% MACE over next 6 weeks - Admit for Clinical Observation Score 7 - 10: 72.7% MACE over next 6 weeks - Early Invasive Strategies Course & Med Decision Making: Course & Med Decision Making Pertinent Labs and Imaging studies reviewed. (See chart for details) The patient's blood sugar on arrival was 13. He was given an amp of D50 and his blood sugar improved. Repeat blood sugar 142. We will give the patient some food to eat. He was awake and alert and having no difficulty. His labs remarkable for a low sodium. This is similar to previous in his chart. Patient also has slightly elevated liver enzymes and an elevated alk phos. His labs in the chart have not showed elevation like this. The patient does have a history of multiple myeloma. I advised that he follow-up with his primary care physician about these labs. The patient also has an infected sebaceous cyst on his abdomen. He is already on antibiotics for this. I checked the wound and it was already spontaneously draining. No I&D was necessary. [] Dragon Disclaimer: Dragon Disclaimer: This electronic medical record was generated, in whole or in part, using a voice recognition dictation system. Departure Departure: Impression: Primary Impression: Hypoglycemia Additional Impressions: Elevated liver enzymes Infected sebaceous cyst of skin Disposition: 01 HOME / SELF CARE / HOMELESS Condition: IMPROVED Referrals: LORENZA ARMIJO MD (PCP) Patient Instructions: Hypoglycemia, [id number] KIMBER WOOD DO May 30, 2021 04:17
[2021-05-30] MEDS: IV NORMAL SALINE 500ML 500 ML IV ONE ×2 (04:33→06:11)
[2021-05-30 05:11] LABS: BASO % 0 % (0-3); EOS % 0 % (0-3); HEMATOCRIT 32.4 % (39.0-53.0); HEMOGLOBIN 10.4 g/dL (13.0-17.5); LYMPH # 0.9 x10^3/uL (1.0-4.8); LYMPH % 10 % (24-48); MEAN CORPUSCULAR HEMOGLOBIN 27 pg (25-35); MEAN CORPUSCULAR HGB CONC 32 g/dL (31-37); MEAN CORPUSCULAR VOLUME 84 fL (79-100); MONO # 0.6 x10^3/uL (0.0-1.1); MONO % 6 % (0-9); NEUT # 7.9 x10^3uL (1.8-7.7); NEUT % 84 % (31-73); PLATELET COUNT 354 x10^3/uL (140-400); RED BLOOD COUNT 3.85 x10^6/uL (4.30-5.70); RED CELL DISTRIBUTION WIDTH 17.9 % (11.5-14.5); WHITE BLOOD COUNT 9.4 x10^3/uL (4.0-11.0)
[2021-05-30 05:16] LABS: CALCIUM 8.6 mg/dL (8.5-10.1); CREATININE 1.6 mg/dL (0.7-1.3); GFR 42.5; POTASSIUM 3.5 mmol/L (3.5-5.1)
[2021-05-30 05:22] LABS: ALBUMIN 3.5 g/dL (3.4-5.0); TOTAL BILIRUBIN 0.6 mg/dL (0.2-1.0); TOTAL PROTEIN 6.9 g/dL (6.4-8.2)
[2021-05-30 06:10] VITALS: BP 101/58
== END 2021-05-30 07:05 | disposition home or self-care (01) ==
LOC: ER 04:00
DX: E11.649 Type 2 diabetes mellitus with hypoglycemia without coma (principal); R74.8 Abnormal levels of other serum enzymes; L72.3 Sebaceous cyst; Z88.1 Allergy status to other antibiotic agents; Z88.8 Allergy status to other drugs, medicaments and biological substances
CPT/HCPCS: 36415; 80053; 82947; 83605; 85025; 96361; 96374; 99283; J7040

== ENCOUNTER → 2021-07-10 | Outpatient (CLI) | payer MEDICARE, OTHER ==
[2021-07-10 13:50] LABS: CALCIUM 8.6 mg/dL (8.5-10.1); CREATININE 1.8 mg/dL (0.7-1.3); POTASSIUM 3.6 mmol/L (3.5-5.1)
== END ==
LOC: SPEC 13:18
PROVIDERS: ATTEND Internal Medicine Cardiovascular Disease
DX: I50.23 Acute on chronic systolic (congestive) heart failure (principal)
CPT/HCPCS: 36415; 80048